=== PATIENT | female | born 1945 | race Caucasian/White ===

== ENCOUNTER → 2017-10-03 09:32 | Outpatient (CLI) | payer MEDICARE, SELFPAY ==
--- NOTE | 2017-10-03 09:37 | XR_ITS ---
XR DEXA axial skeleton HISTORY: ITS.REASON: POST MENOPAUSAL ORDERING PHYSICIAN: Augusto Fonseca MD PATIENT AGE: 71 years COMPARISON: FINDINGS: The BMD measured at the left femoral neck is 0.683 g/cm squared with a T score of -2.6. This is considered Osteoporotic according to the World Health Organization criteria. Fracture risk is High. Treatment is advised. L1 L4 density is a T score of -1.8. IMPRESSION: Osteoporosis with high fracture risk. Treatment recommended. Recommend follow-up exam September 2018
--- NOTE | 2017-10-03 09:37 | MM_ITS ---
MM Dig screening mamm BI w/CAD CAD Screening ORDERING PHYSICIAN : Augusto Fonseca MD PATIENT AGE: 71 years GENDER: Female COMPARISON: Previous mammograms: Only November 2013 available.: TECHNIQUE: Standard CC and MLO images were obtained. R2 CAD reviewed. FINDINGS: Moderately dense breast . Similar architecture to previous comparison study with no new findings of significant concern. No dominant mass nor suspicious calcifications minimal mass effect calcifications bilaterally noted A stable bilateral mammogram IMPRESSION: Stable bilateral mammogram with no significant new findings Moderately dense breast BI-RADS Category: 1 Negative RECOMMENDED FOLLOW-UP: 1YR - 1 YEAR FOLLOW-UP (A letter has been sent to the patient regarding results of the study.)
== END ==
PROVIDERS: Family Provider Family Medicine; PCP Family Medicine; Visit Provider Family Medicine
DX: Z12.31 Encounter for screening mammogram for malignant neoplasm of breast (principal); Z78.0 Asymptomatic menopausal state
CPT/HCPCS: 77067; 77080

== ENCOUNTER → 2018-01-01 13:39 | Outpatient (CLI) | payer MEDICARE, SELFPAY | PROVIDERS: Family Provider Family Medicine; PCP Family Medicine; Visit Provider Internal Medicine | DX: I10 Essential (primary) hypertension (principal); I35.1 Nonrheumatic aortic (valve) insufficiency; R60.9 Edema, unspecified | CPT/HCPCS: 93306 ==

== ENCOUNTER → 2018-03-25 11:36 | Outpatient (CLI) | payer MEDICARE, SELFPAY ==
--- NOTE | 2018-03-25 11:45 | XR_ITS ---
EXAM: XR thoracic spine 3V HISTORY: Pain ITS.REASON: FLANK PAIN Comparison: None FINDINGS: There is mild lower thoracic curvature convex left along with thoracic kyphosis. There is minimal wedging of T9 T8 T7 and T6 which may be chronic. Degenerative disc disease with minimal endplate osteophytes are present in the mid thoracic spine. IMPRESSION: No acute finding. Thoracic kyphosis with degenerative changes
== END ==
PROVIDERS: PCP Family Medicine; Visit Provider Family Medicine
DX: R10.9 Unspecified abdominal pain (principal); M54.6 Pain in thoracic spine
CPT/HCPCS: 72072

== ENCOUNTER 2018-09-20 07:16 | Day surgery (SDC) | payer MEDICARE, SELFPAY ==
[2018-09-17 13:56] VITALS: BMI 23.1
[2018-09-20] VITALS (7 sets, daily range): BP systolic 70–138; BP diastolic 33–67; PULSE 51–67; RESP 16–18; TEMP 36.8–37; O2SAT 96–97
--- NOTE | 2018-09-20 08:35 | HMH.PROC ---
[facility] Procedure Note Procedure Note:: Colonoscopy Procedure Report: Colonoscopy with cold snare polypectomy Endoscopist: Reece Hunter II, MD Referring physician: Tono Fonseca MD Date of Procedure: September 20, 2018 Equipment: Olympus 180 variable stiffness pediatric colonoscope Sedation: MAC sedation Indication: Mrs. Molina is a 72-year-old female who is here for follow-up screening/surveillance colonoscopy. Her mother had colon cancer at the age of 84. The patient's last colonoscopy with mt was 15 years ago. She reports no abdominal pain, weight loss, change in her bowel habits or rectal bleeding. Procedure: Prior to the procedure, a history and physical exam was performed, and patient's medications and allergies were reviewed. The risks, benefits and alternatives of the sedation and procedure were discussed with the patient. All questions were answered and informed consent was obtained. The patient was brought to the procedure room. Patient identification and proposed procedure were verified by the physician and the nurse. The patient was placed in a left lateral decubitus position and the scope was passed under direct vision. Throughout the procedure, the patient's blood pressure, pulse, and oxygen saturations were monitored continuously. The colonoscopy was accomplished without difficulty. The patient tolerated the procedure well. Findings: On digital rectal examination there was normal rectal tone. There were no external hemorrhoids. The colonoscope was introduced through the anal canal to the rectum and advanced to the cecum. The ileocecal valve and appendiceal orifice were identified. The scope was advanced a short distance into the ileum which appeared grossly normal. The scope was then withdrawn into the colon. The cecum, ascending and transverse colon and mucosa were grossly normal. There was a diminutive 3 mm polyp in the descending colon removed via cold snare polypectomy there were very mildly scattered diverticuli throughout the descending and sigmoid colon (LEFT colon). The rectum itself was normal. Upon retroflexion within the rectum there were grade 1 internal hemorrhoids. The preparation was excellent throughout with [place] Preparation Score of 9. The cecal time was 12 minutes. Impression: 1. Diminutive descending polyp 2. Mild left-sided diverticulosis 3. Grade 1 internal hemorrhoids Plan: I will follow-up the polyp histology and recommend repeat screening/surveillance colonoscopy again in 5 years based upon her family history. I would encourage bulk fiber supplementation on a long-term daily maintenance basis.
--- NOTE | 2018-09-20 08:52 | P.PCN_ITS ---
[facility] Procedure Note Procedure Note:: Colonoscopy Procedure Report: Colonoscopy with cold snare polypectomy Endoscopist: Reece Hunter II, MD Referring physician: Tono Fonseca MD Date of Procedure: September 20, 2018 Equipment: Olympus 180 variable stiffness pediatric colonoscope Sedation: MAC sedation Indication: Mrs. Molina is a 72-year-old female who is here for follow-up screening/surveillance colonoscopy. Her mother had colon cancer at the age of 84. The patient's last colonoscopy with ky was 15 years ago. She reports no abdominal pain, weight loss, change in her bowel habits or rectal bleeding. Procedure: Prior to the procedure, a history and physical exam was performed, and patient's medications and allergies were reviewed. The risks, benefits and alternatives of the sedation and procedure were discussed with the patient. All questions were answered and informed consent was obtained. The patient was brought to the procedure room. Patient identification and proposed procedure were verified by the physician and the nurse. The patient was placed in a left lateral decubitus position and the scope was passed under direct vision. Throughout the procedure, the patient's blood pressure, pulse, and oxygen saturations were monitored continuously. The colonoscopy was accomplished without difficulty. The patient tolerated the procedure well. Findings: On digital rectal examination there was normal rectal tone. There were no external hemorrhoids. The colonoscope was introduced through the anal canal to the rectum and advanced to the cecum. The ileocecal valve and appendiceal orifice were identified. The scope was advanced a short distance into the ileum which appeared grossly normal. The scope was then withdrawn into the colon. The cecum, ascending and transverse colon and mucosa were grossly normal. There was a diminutive 3 mm polyp in the descending colon removed via cold snare polypectomy there were very mildly scattered diverticuli throughout the descending and sigmoid colon (LEFT colon). The rectum itself was normal. Upon retroflexion within the rectum there were grade 1 internal hemorrhoids. The preparation was excellent throughout with [place] Preparation Score of 9. The cecal time was 12 minutes. Impression: 1. Diminutive descending polyp 2. Mild left-sided diverticulosis 3. Grade 1 internal hemorrhoids Plan: I will follow-up the polyp histology and recommend repeat screening/surveillance colonoscopy again in 5 years based upon her family history. I would encourage bulk fiber supplementation on a long-term daily maintenance basis.
== END 2018-09-20 09:46 | disposition home or self-care (01) ==
LOC: OUTP 07:17
PROVIDERS: PCP Family Medicine; Visit Provider Internal Medicine Gastroenterology
PROC: 0DJD8ZZ Inspection of Lower Intestinal Tract, Via Natural or Artificial Opening Endoscopic (ICD-10-PCS; CPT 45378; principal; 2018-09-20 08:30)
DX: Z12.11 Encounter for screening for malignant neoplasm of colon (principal); K63.5 Polyp of colon; K57.30 Diverticulosis of large intestine without perforation or abscess without bleeding; K64.0 First degree hemorrhoids
CPT/HCPCS: 45385; 88305

== ENCOUNTER → 2020-01-28 08:22 | Outpatient (CLI) | payer MEDICARE, SELFPAY ==
--- NOTE | 2020-01-28 08:32 | MM_ITS ---
PROCEDURE: MM DIG SCREENING MAMM BI W/CAD Referring Doctor: Augusto Fonseca Patient Age:74Y CLINICAL INDICATION: Routine screening mammogram 74-year-old. No female hormones. No new complaints. Family history maternal aunt with breast cancer COMPARISON: MG DMSB DIG MAMM-SCREEN RAMY from 12/22/2013 MG SCBI MM Dig screening mamm BI w/CAD from 10/03/2017 TECHNIQUE: Standard CC and MLO images were obtained. R2 CAD reviewed. Bilateral digital breast tomosynthesis included. Additional axillary CC view right and left breast left knee Additional nipple profile MLO view left breast FINDINGS: Moderate density breast for age. Mild asymmetry but with no new areas of concern. No dominant nor suspicious mass,. No suspicious calcifications-Only minimal vascular calcifications and benign calcifications bilateral. A CAD computer review highlights no new areas of significant concern.. Left breast: No new areas of concern Mild asymmetric area towards inferior breast unchanged since 2013 Right breast:. No new areas of concern Minor area asymmetry medial breast on CC view is unchanged since prior studies dating back to 2013 IMPRESSION: . . Stable bilateral mammogram with no new areas of concern Moderate breast density but stable mild asymmetry Bilateral follow-up 1 year recommended BI-RAD Category: 1 Negative FOLLOW-UP: 1YR 1 Year Follow-up (A letter has been sent to the patient regarding results of the study.) Dictated by: Rod Saul MD 02/01/2020 10:54 Rod Saul MD in [place] 02/01/2020 10:54
--- NOTE | 2020-01-28 08:33 | XR_ITS ---
PROCEDURE: XR DEXA AXIAL SKELETON CLINICAL HISTORY: OSTEOPOROSIS COMPARISON: CR DEXAAX XR DEXA axial skeleton from 10/03/2017 FINDINGS: The right hip BMD is 0.578 with a T-score of -2.4. The left hip BMD is 0.628 with a T-score of -2.6. The lumbar spine BMD is 0.804 with a T-score of -2.2. Previously the lowest density was in the left femoral neck with T-score -2.6 IMPRESSION: This patient is considered osteoporotic according to the World Health Organization criteria. Fracture risk is high. Treatment is advised. Based on these results a follow-up exam is recommended in 1 year. Dictated by: Leeroy Roberson MD 01/29/2020 07:28 Leeroy Roberson MD in [place] 01/29/2020 07:28
== END ==
PROVIDERS: PCP Family Medicine; Visit Provider Family Medicine
DX: Z12.31 Encounter for screening mammogram for malignant neoplasm of breast (principal); M81.0 Age-related osteoporosis without current pathological fracture
CPT/HCPCS: 77063; 77067; 77080

== ENCOUNTER → 2021-04-04 10:53 | Outpatient (CLI) | payer MEDICARE, SELFPAY ==
--- NOTE | 2021-04-04 10:56 | MM_ITS ---
PROCEDURE INFORMATION: Exam: MG Bilateral Screening 3D Mammography Exam date and time: 04/04/2021 10:56 AM Age: 75 years old Clinical indication: Encounter for screening mammogram for malignant neoplasm of breast . Family history of breast carcinoma. TECHNIQUE: Imaging protocol: Bilateral screening tomosynthesis and 2D mammography including computer-aided detection (CAD) when performed. COMPARISON: 1. MG MM DIG SCREENING MAMM BI W/CAD 01/28/2020 8:32 AM 2. MG SCBI MM Dig screening mamm BI w/CAD 10/03/2017 10:09 AM 3. MG DMSB DIG MAMM-SCREEN RAMY 12/22/2013 8:31 AM FINDINGS: MAMMOGRAPHY: Breast composition: The breasts are heterogeneously dense, which may obscure small masses. Mass: No suspicious masses. Architectural distortion: No suspicious distortion. Calcifications: No suspicious calcifications. Asymmetric density: None. Skin thickening: None. Axillary adenopathy: None. IMPRESSION: No mammographic evidence of malignancy. Annual screening is recommended unless otherwise clinically indicated. ASSESSMENT: BI-RADS Category 1: Negative
== END ==
PROVIDERS: PCP Family Medicine; Visit Provider Family Medicine
DX: Z12.31 Encounter for screening mammogram for malignant neoplasm of breast (principal)
CPT/HCPCS: 77063; 77067

== ENCOUNTER → 2021-05-25 15:51 | Outpatient (CLI) | payer MEDICARE, SELFPAY ==
--- NOTE | 2021-05-25 16:03 | XR_ITS ---
PROCEDURE INFORMATION: Exam: XR Chest Exam date and time: 05/25/2021 4:03 PM Age: 75 years old Clinical indication: Pain; Left-sided; Additional info: Radicular pain of lt upper extremity TECHNIQUE: Imaging protocol: XR of the chest. Views: 2 views. COMPARISON: CR [id number] XR thoracic spine 3V 03/25/2018 12:02 PM FINDINGS: Lungs: Unremarkable. No consolidation. Pleural spaces: Unremarkable. No pleural effusion. No pneumothorax. Heart/Mediastinum: Heart size is normal. There is tortuosity of the descending thoracic aorta. Bones/joints: Degenerative changes noted within the thoracic spine. There is accentuated thoracic kyphosis noted. IMPRESSION: No evidence of acute intrathoracic disease.
--- NOTE | 2021-05-25 16:04 | XR_ITS ---
PROCEDURE INFORMATION: Exam: XR Cervical Spine Exam date and time: 05/25/2021 4:04 PM Age: 75 years old Clinical indication: Pain; Cervicalgia; Additional info: Radicular pain of lt upper extremity TECHNIQUE: Imaging protocol: XR of the cervical spine. Views: 4 or 5 views. COMPARISON: CR [id number] XR thoracic spine 3V 03/25/2018 12:02 PM FINDINGS: Bones/joints: No evidence of acute fracture. There are degenerative changes involving the facets of C2-C3 through C6-C7 bilaterally. Mild narrowing of the right C5-C6 exit foramen. Alignment is satisfactory. Hypertrophic changes between the anterior arch of C1 and dens of C2. The spinolaminar line is intact. Soft tissues: Unremarkable. IMPRESSION: Osteoarthritis of the cervical spine. No evidence of acute fracture or malalignment.
--- NOTE | 2021-05-25 16:31 | ECG_ITS ---
APPROVED REPORT Exam: Resting ECG HR:55 bpm ECG Measurements Heart Rate 55 AXES UT 113 P 16 QRSd 93 QRS 21 QT 443 T 56 QTc 432 Conclusion SINUS BRADYCARDIA WITH SHORT UT INTERVAL Late r wave progression ABNORMAL ECG UNCONFIRMED REPORT Electronically signed by : Konrad Tovar MD 05/30/2021 17:34:10
== END ==
PROVIDERS: PCP Family Medicine; Visit Provider Family Medicine
DX: M79.2 Neuralgia and neuritis, unspecified (principal)
CPT/HCPCS: 71046; 72050; 93005

== ENCOUNTER → 2021-10-14 08:25 | Outpatient (CLI) | payer MEDICARE, SELFPAY ==
--- NOTE | 2021-10-14 08:29 | XR_ITS ---
FINAL REPORT TECHNIQUE: Bone densitometry calculations of the lumbar spine and left hip were obtained. CLINICAL HISTORY: . post menopausal COMPARISON: January 28, 2020 FINDINGS: DEXA BONE DENSITY AXIAL SKELETON Using L1-4, the bone mineral density of the spine is 0.838 g/cm2, corresponding to T-score of -1.9. Was 0.804 g/cm2 corresponding to a T-score of -2.2 Using the left hip, the bone mineral density of the femoral neck is 0.527 g/cm2, corresponding to a T-score of -2.9. Was 0.527 g/cm2 corresponding with a T-score of -2.4 NOTE: T-score: Standard deviation compared with peak bone mass of young adult mean. *Following the recommendations of the International Society of Bone Densitometry, classification of hip BMD is based on the lower of two T-scores; total hip or femoral neck. IMPRESSION: Osteoporosis: Lowest T-score is at or below -2.5. This patient's T-score meets the World Health Organization criteria for osteoporosis. Reviewed, Interpreted and Dictated by Mehul Barros III, MD Transcribed by Era Mahajan Authenticated and [facility]
== END ==
PROVIDERS: PCP Family Medicine; Visit Provider Family Medicine
DX: M81.0 Age-related osteoporosis without current pathological fracture (principal)
CPT/HCPCS: 77080

== ENCOUNTER 2022-10-03 11:46 | Emergency (ER) | payer MEDICARE, SELFPAY ==
[2022-10-03 11:46] VITALS: BP 144/56; PULSE 61; RESP 16; TEMP 37; O2SAT 99; BMI 22.3
--- NOTE | 2022-10-03 12:12 | HMH.EDGENADL ---
Discharge Plan Disposition Patient Disposition: Home, Self-Care Prescriptions Prescriptions: New epinephrine [EpiPen 2-Mehdi] 0.3 mg/0.3 mL auto-injector 0.3 mg IM Q10M PRN (Reason: anaphylaxis) Qty: 2 0RF Rx Instructions: for 2 doses No Action aspirin [Aspir-81] 81 mg tablet,delayed release (DR/EC) 81 mg PO DAILY losartan-hydrochlorothiazide 100-12.5 mg tablet 1 tab PO DAILY levothyroxine 50 mcg capsule 50 mcg PO DAILY pravastatin 80 mg tablet 80 mg PO DAILY C,E,zinc,copper [id number] [50 [facility]] 250-5-1 mg capsule 1 cap PO DAILY multivitamin tablet 1 tab PO DAILY coenzyme Q10 [Co Q-10] 10 mg capsule 10 mg PO DAILY potassium chloride 10 MEQ capsule, extended release 10 meq PO DAILY alendronate 70 MG tablet 70 mg PO DAILY calcium-vitamin D3-vitamin K 1 EACH tablet,chewable 1 each PO DAILY Referrals Follow up/Referrals: Augusto Fonseca MD [Primary Care Provider] - See instructions Activity Restrictions/Add. Instructions Additional Instructions/Restrictions: It is possible that you had an anaphylactic reaction but your symptoms have since resolved and no evidence of anaphylaxis at the moment. Please get your EpiPen's filled and use them if your symptoms return remember the indication would be to organ system involvement that typically includes your skin plus no other organ system such as your breathing your mucosa and your lips or your tongue and of your gastrointestinal system such as nausea and vomiting. You may continue to take Benadryl as needed. Right now the only clinical evidence is a local reaction from the hymenoptera sting. Clinical Impressions Clinical Impression: Local reaction to hymenoptera sting Discharge ED Provider: Reg Gale General Adult HPI General Stated complaint: Bee sting RT ear Time Seen by Provider: 10/03/22 12:12 History of Present Illness HPI narrative: Patient is a 76-year-old female presenting with right ear pain and swelling following a bee sting. This happened about 2 hours prior to arrival and it was associated with a diffuse body rash heart racing some nausea and feeling like she was in a pass out. Symptoms have since almost completely resolved within the localized swelling in her ear after a dose of Benadryl. She currently denies any mucosal swelling shortness of breath nausea or feeling she is going to pass out. She has no other significant medical problems Related Data Home Medications Medication Instructions Recorded Confirmed aspirin 81 mg tablet,delayed 81 mg PO DAILY prevent 12/25/17 09/17/18 release (Aspir-) coenzyme Q10 10 mg capsule (Co 10 mg PO DAILY Supplement 12/25/17 09/17/18 Q-10) levothyroxine 50 mcg capsule 50 mcg PO DAILY thyroid 12/25/17 09/17/18 losartan 100 1 tab PO DAILY bp 12/25/17 09/20/18 mg-hydrochlorothiazide 12.5 mg tablet multivitamin 1 tab PO DAILY Supplement 12/25/17 09/17/18 pravastatin 80 mg tablet 80 mg PO DAILY Cholesterol 12/25/17 09/17/18 vit C,E,zinc,copper-[id number] 250 1 cap PO DAILY Supplement 12/25/17 09/17/18 mg-lutein 5 mg-zeaxanthin 1 mg capsule (50 Plus [facility]) alendronate 70 mg tablet 70 mg PO DAILY bones 09/17/18 09/17/18 calcium-vitamin D3-vitamin K 500 1 each PO DAILY Supplement 09/17/18 09/17/18 mg-1,000 unit-40 mcg chewable tablet potassium chloride 10 mEq 10 meq PO DAILY Supplement 09/17/18 09/17/18 capsule,extended release Previous Rx's Medication Instructions Recorded epinephrine 0.3 mg/0.3 mL 0.3 mg (0.3 mL) IM Q10M PRN 10/03/22 injection, auto-injector (EpiPen anaphylaxis #2 ea 2-Mhedi) Allergies Allergy/AdvReac Type Severity Reaction Status Date / Time No Known Allergies Allergy Verified 09/17/18 13:50 [facility] Disclaimer: The information contained in this section may have been updated after the patient was seen, as this information can be updated by ot
[2022-10-03 12:26] VITALS: BP 138/57; PULSE 54; RESP 20; TEMP 36.8; O2SAT 97
== END 2022-10-03 12:27 | disposition home or self-care (01) ==
PROVIDERS: Emergency Provider Student in an Organized Health Care Education/Training Program; PCP Family Medicine
DX: T63.441A Toxic effect of venom of bees, accidental (unintentional), initial encounter (principal); H92.01 Otalgia, right ear; R22.0 Localized swelling, mass and lump, head
CPT/HCPCS: 99283; 99284

== ENCOUNTER → 2022-12-19 10:41 | Outpatient (CLI) | payer MEDICARE, SELFPAY ==
--- NOTE | 2022-12-19 10:51 | CA_ITS ---
APPROVED REPORT EXAM: Comprehensive 2D, Doppler, and color-flow Echocardiogram Nuclear Medicine Tech: Brigid Payne CRT Ht: 5 ft 4 in Wt: 142lbs BSA: 1.69 BP: 124/44 mmHg Indications: BAV, Aortic Valve Disease, Hyperlipidemia, Hypertension/HDD, mod AI 2D Dimensions LVOT 1.84 cm (M/F) 1.5-2.5 LA Volume 37.80 mL LA Volume Index 22.37 mL/m2 (M/F) 16-34 M-Mode Dimensions RVDd 2.31 cm (0.9-2.6) LA Diam 3.80 cm (1.9-4.0) LVDd 3.99 cm (3.5-5.7) Ao Diam 3.19 cm (2.0-3.7) LVDs 2.14 cm (3.5-5.7) IVSd 2.01 cm (0.6-1.1) PWd 0.74 cm (0.6-1.1) EF (Teich) 78.30% FS 46.40% EDV (Teich) 69.60 mL ESV (Teich) 15.10 mL LV Diastology E Decel Time 207.00 (160-240 msec) E/A Ratio 0.9 MED E' 9.20 (< 7 cm/sec) MED A' 8.30 cm/s E'/MED E' Ratio 5.96 (>14) LAT E' 9.10 (<10 cm/sec) LAT A' 11.90 cm/s E/LAT E' Ratio 6.02 (>14) Aortic Valve LVOT Max 113.00 (70-110 cm/s) LVOT VTI 27.92 cm AoV Peak Daniel. 195.00 (50-130 cm/s) AI PHT 503.00 ms AO Peak GR. 15.20 mmHg AO Mean GR. 8.90 (<5 mmHg) AO VTI 44.38 (18-25 cm) JOSIE (VTI) 1.67 (2.5-4.5 cm2) Mitral Valve MV E Max Daniel. 55.00 (40-130 cm/s) MV A Velocity 58.00 (40-130 cm/s) E/A Ratio 0.95 MV Decel. Time 207.00 (160-240 ms) MV PHT 61.00 ms Pulmonary Valve PV Peak Velocity 145.00 (50-150 cm/s) Tricuspid Valve TR P. Velocity 299.00 cm/s RAP Estimate 10.00 mmHg RVSP 45.70 mmHg Left Ventricle The left ventricle is normal size. LVEDd=5.3 cm. LVESd=2.5 cm. The left ventricular systolic function is normal. The left ventricular ejection fraction is within the normal range. There is increased LV wall thickness. There is normal LV segmental wall motion. Diastolic function is normal. LVEF is 55%. Right Ventricle The right ventricle is normal size. The right ventricular systolic function is normal. Atria The left atrium size is normal. The right atrium size is normal. There is no Doppler evidence of interatrial shunt. Aortic Valve The aortic valve appears morphologically abnormal, likely bicuspid aortic valve with raphe between the right and left coronary cusps. The aortic valve is mildly thickened. There is no hemodynamically significant aortic valvular stenosis. There is moderate aortic regurgitation. Mitral Valve The mitral valve is normal in structure. No evidence of mitral valve stenosis. Trace mitral regurgitation. Tricuspid Valve The tricuspid valve leaflets are thin and pliable. Mild tricuspid regurgitation. RVSP is 30-35 mmHg. Pulmonic Valve The pulmonary valve is normal in structure. Mild pulmonic regurgitation. Great Vessels The aortic root is normal in size. The ascending aorta is mildly dilated. The ascending aorta measures 4.0 cm. IVC is normal in size and collapses >50% with inspiration. Pericardium There is no pericardial effusion. Other Information Study Quality: Fair Conclusion Normal biventricular systolic function. Morphologically abnormal AV, likely bicuspid (raphe between left and right coronary cusps). Moderate AI, with normal LV dimensions (LVEDd=5.3 cm. LVESd=2.5 cm). Compared to prior study from 2018, there are overall no significant changes with regards the severity of AI. The LV dimensions are slightly larger now, but overall still within normal limits in both systole and diastole. Electronically signed by : Narcisa Perez, 12/19/2022 18:02:10
== END ==
PROVIDERS: PCP Family Medicine; Visit Provider Nurse Practitioner Family
DX: I10 Essential (primary) hypertension (principal); I35.1 Nonrheumatic aortic (valve) insufficiency; I35.9 Nonrheumatic aortic valve disorder, unspecified
CPT/HCPCS: 93306

== ENCOUNTER 2023-06-14 09:43 | Outpatient (CLI) | payer MEDICARE, SELFPAY ==
--- NOTE | 2023-06-14 09:47 | MM_ITS ---
PROCEDURE INFORMATION: Exam: MG Bilateral Screening 3D Mammography Exam date and time: 06/14/2023 9:38 AM Age: 77 years old Clinical indication: Screening examination TECHNIQUE: Imaging protocol: Bilateral Screening tomosynthesis and 2D mammography including computer-aided detection (CAD) when performed. COMPARISON: 1. MG MM DIG SCREENING MAMM BI W/CAD 04/04/2021 10:52 AM 2. MG MM DIG SCREENING MAMM BI W/CAD 01/28/2020 8:32 AM FINDINGS: MAMMOGRAPHY: Breast composition: The breasts are heterogeneously dense, which may obscure small masses. Mass: None. Architectural distortion: None. Calcifications: No suspicious calcifications. Asymmetric density: None. Skin thickening: None. Axillary adenopathy: None. IMPRESSION: No mammographic evidence of malignancy. Annual screening is recommended unless otherwise clinically indicated. ASSESSMENT: BI-RADS Category 1: Negative
== END 2023-06-14 23:59 ==
LOC: RAD 09:43
PROVIDERS: PCP Family Medicine; Visit Provider Family Medicine
DX: Z12.31 Encounter for screening mammogram for malignant neoplasm of breast (principal)
CPT/HCPCS: 77063; 77067

== ENCOUNTER 2023-07-03 08:58 | Outpatient (CLI) | payer MEDICARE, SELFPAY ==
--- NOTE | 2023-07-03 09:06 | XR_ITS ---
FINAL REPORT TECHNIQUE: Bone densitometry calculations of the lumbar spine and left hip were obtained. CLINICAL HISTORY: OSTEOPOROSIS COMPARISON: 10/14/2021 FINDINGS: Using L1-4, the bone mineral density of the spine is 0.859 g/cm2, corresponding to T-score of -1.7. Using the left hip, the bone mineral density of the femoral neck is 0.615 g/cm2, corresponding to a T-score of -2.1. Using the right hip, the bone mineral density of the femoral neck is 0.576 g/cm?, corresponding to a T-score of -2.5. NOTE: T-score: Standard deviation compared with peak bone mass of young adult mean. *Following the recommendations of the International Society of Bone Densitometry, classification of hip BMD is based on the lower of two T-scores; total hip or femoral neck. IMPRESSION: Findings consistent with osteoporosis right femoral neck. Findings consistent with low bone density left femoral neck and lumbar spine. Reviewed, Interpreted and Dictated by Mehul Barros III, MD Transcribed by Marnie Schroeder Authenticated and . [facility]
== END 2023-07-03 23:59 ==
LOC: RAD 08:59
PROVIDERS: PCP Family Medicine; Visit Provider Family Medicine
DX: M81.0 Age-related osteoporosis without current pathological fracture (principal)
CPT/HCPCS: 77080

== ENCOUNTER 2024-02-19 08:53 | Outpatient (CLI) | payer MEDICARE, SELFPAY ==
--- NOTE | 2024-02-19 08:57 | MM_ITS ---
PROCEDURE INFORMATION: Exam: MG Bilateral Screening 3D Mammography Exam date and time: 02/19/2024 8:44 AM Age: 78 years old Clinical indication: Screening mammogram TECHNIQUE: Imaging protocol: Bilateral Screening tomosynthesis and 2D mammography including computer-aided detection (CAD) when performed. COMPARISON: 1. MG MM DIG SCREENING MAMM BI W/CAD 06/14/2023 9:38 AM 2. MG MM DIG SCREENING MAMM BI W/CAD 04/04/2021 10:52 AM 3. MG MM DIG SCREENING MAMM BI W/CAD 01/28/2020 8:32 AM 4. MG SCBI MM Dig screening mamm BI w/CAD 10/03/2017 10:09 AM FINDINGS: MAMMOGRAPHY: Breast composition: There are scattered areas of fibroglandular density. Mass: None. Architectural distortion: No new or suspicious architectural distortion. Calcifications: No new or suspicious calcifications are present Asymmetric density: No new or suspicious asymmetric density is present Skin thickening: None. Axillary adenopathy: None. IMPRESSION: No mammographic evidence of malignancy. Recommend annual screening mammography unless otherwise clinically indicated. ASSESSMENT: BI-RADS category 1: Negative.
== END 2024-02-19 23:59 | disposition home or self-care (01) ==
LOC: RAD 08:53
PROVIDERS: PCP Family Medicine; Visit Provider Family Medicine
DX: Z12.31 Encounter for screening mammogram for malignant neoplasm of breast (principal)
CPT/HCPCS: 77063; 77067

== ENCOUNTER 2025-01-02 13:57 | Outpatient (CLI) | payer MEDICARE, SELFPAY ==
--- OUTSIDE RECORDS SUMMARY | 2023-08-13 06:00 | XMS_ITS ---
Author Organization [facility] Address [address] [facility] [address] [facility] [address] [place] [id number] Care Team Providers Care Ceramic Engineer Name Role Phone Reg Fonseca Primary Care Provider Allergies No Known Allergies Results Component Value Reference Range Notes P-Comprehensive Metabolic Pa venessa (CMP) Reviewed date:08/15/2023 09:27:18 AM Interpretation:co2 21, gfr 58 Performing Lab: Notes/Report: Test performed by [employer], [employer] [address] [place] [address] , [address], [place] [address] Kranthi Simeon MD, Pot Runner CLIA: [id number] Sodium 140 135-145 mEq/L Potassium 4.3 3.5-5.3 mEq/L Chloride 105 97-108 mEq/L CO2 21 22-32 mEq/L Glucose 95 65-99 mg/dL BUN 23 8-23 mg/dL Creatinine 0.99 0.50-1.00 mg/dL Calcium 9.8 8.6-10.4 mg/dL eGFR by Creatinine 58 >59 mL/min/1.73m2 Protein 6.3 6.0-8.3 g/dL Albumin 4.4 3.5-5.3 g/dL Alkaline Phosphatase 55 35-121 IU/L ALT (SGPT) 14 <5-47 IU/L AST (SGOT) 18 <5-40 IU/L Bilirubin, Total 0.5 <0.2-1.2 mg/dL A/G Ratio 2.3 1.1-2.5 mg/dL P-TSH Reviewed date:08/15/2023 09:27:18 AM Interpretation:Normal Performing Lab: Notes/Report: Test performed by [employer], [employer] [address] [place] [address] , [address], [place] [address] Kranthi Simeon MD, Pot Runner CLIA: [id number] TSH 2.28 0.43-5.25 mU/L REASON FOR VISIT 6 mo ck up, Needs labs Medications Medication SIG (Take, Route, Frequency, Duration) Notes Start Date End Date Status Furosemide 20 MG 1 tab(s) orally as needed prn 10/06/2015 Active Aspirin Adult Low Dose 81 MG orally only one aa day TAKES 2 DAILY Active Levothyroxine Sodium 75 MCG 1 tab(s) orally once a day; Duration: 90 days Active Alendronate Sodium 70 MG 1 tab(s) orally once a week; Duration: 84 Active Potassium Chloride ER 10 MEQ TAKE 1 TABLET EVERY DAY; Duration: 90 Active Losartan Potassium-HCTZ 100-12.5 MG TAKE 1 TABLET EVERY DAY; Duration: 90 Active Fiber Choice 3 CAPS P.O. Q DAY Active Multivitamin - 1 tab(s) orally once a day; Duration: 30 day(s) Active ICaps Active Calcium 600 + Minerals 600-200 MG-UNIT 1 tab(s) orally once daily Active Pravastatin Sodium 80 MG TAKE 1 TABLET A T BEDTIME; Duration: 90 Active Co Q10 100MG 1 TAB ORAL QD 03/28/2012 Ac tive Vital Signs Blood pressure systolic 140 mm Hg 08/13/19 24 Blood pressure diastolic 60 mm Hg 024 Heart Rate 61 /min 08/13/2023 Height 63 in 08/13/2023 Weight 129.6 lbs 08/13/2023 BMI 22.96 kg/m2 08/13/2023 Encounters Encounter Location Date Provider Diagnosis [facility] [address] [place], [place] [id number] 08/13/2023 Reg Fonseca Aortic valve insufficiency, unspecified etiology I35.1 ; Essential hypertension I10 ; Actinic keratosis L57.0 and Acquired hypothyroidism E03.9 Assessments Encounter Date Diagnosis (ICD Code) Assessment Notes Treatment Notes Treatment Clinical Notes Section Notes 08/13/2023 Aortic valve insufficiency, unspecified etiology (ICD-10 - I35.1) 08/13/2023 Essential hypertension (ICD-10 - I10) 08/13/2023 Actinic keratosis (ICD-10 - L57.0) 08/13/2023 Acquired hypothyroidism (ICD-10 - E03.9) Plan Of Treatment Next Appt Details Follow Up: 6 Months, Reason: Provider Name:Reg Elias er, 01/05/2025 11:15:00 AM, [address], [address], [place], [place], [id number], Procedure Notes * Category Sub-Category Detail Notes Cryotherapy Actinic Keratosis Method: Wa llach LL-100 used to freeze and refreeze the lesions, of the right forearm and he left hand, dorsum, The patient tolerated the procedure well. Progress Notes * Beata MOLINAOB:[birth year] (79 yo F)Acc No.[id number]:08/13/2023 Progress Notes Patient: Lucia ALFARO Provider: Reg Fonseca M.D. :1945 A ge:77 Y S ex:Female Date:08/13/2023 Address:[address] [place] [address], [place], [id number] Subjective: * Chief Complaints: * 1 . 6 mo ck up. 2. Needs labs. * HPI: C ardiology: The pt is here for a check up on Hypertension and Hyperlipidemia. Pt states she is doing good. Pt states she has a spot on the right forearm she would like checked out. Pt is not fasting. Denies : Chest Pain. D enies : Short of Breath. D enies : Dizziness. D enies : Palpitations. * ROS: D ERMATOLOGY: no R davi. n o H leslie. G ASTROENTEROLOGY: no N ausea. n o V omiting. n o D iarrhea.? U ROLOGY: no D ifficulty urinating. n o B lood in urine. * Medical History: H yperlipidemia, Bicuspid aortic valve, aortic insufficiency, Basal cell CA left shoulder 07/2011, Flu shot 2022, Shingrix x2 . * Surgical History: t ubal 1994, cataract (left) 06/2010. * Family History: F ather: 84 yrs. M other: , puem[place]. 1 brother(s) , 3 sister(s) . 1 son(s) , 1 daughter(s) . . * Social History: C URRENT TOBACCO USE S moking Status: Patient does NOT smoke. C affeine: yes, frequency:coffee, pop and tea. Home smoke detector use: yes. Marital Status: . Past smoking status: no, Smoking status: Does not smoke. Alcohol: Yes, Type: , Frequency: ,Years: , Determination:, rare. Sexually active: yes. * Medications: T aking Furosemide 20 MG Tablet 1 tab(s) orally as needed , Notes to Pharmacist: prn, Taking Aspirin Adult Low Dose 81 MG Tablet Delayed Release orally only one aa day , Notes to Pharmacist: TAKES 2 DAILY, Taking Co Q10 100MG 1 TAB ORAL QD , Taking Fiber Choice 3 CAPS P.O. Q DAY , Taking Multivitamin - Tablet 1 tab(s) orally once a day , Taking ICaps , Taking Calcium 600 + Minerals 600-200 MG-UNIT Tablet 1 tab(s) orally once daily , Taking Pravastatin Sodium 80 MG Tablet TAKE 1 TABLET AT BEDTIME , Taking Potassium Chloride ER 10 MEQ Tablet Extended Release TAKE 1 TABLET EVERY DAY , Taking Losartan Potassium-HCTZ 100-12.5 MG Tablet TAKE 1 TABLET EVERY DAY , Taking Levothyroxine Sodium 75 MCG Tablet 1 tab(s) orally once a day , Taking Alendronate Sodium 70 MG Tablet 1 tab(s) orally once a week , Discontinued Zithromax Tri-Mehdi 500 MG Tablet 1 tab(s) orally once a day , Discontinued Medrol 4 MG Tablet Therapy Pack as directed orally , Discontinued Promethazine-DM 6.25-15 MG/5ML Syrup 5 ml orally every 6 hours as needed , Discontinued Ondansetron HCl 4 MG Tablet 1 tab(s) orally every 8 hours as needed , Medication List reviewed and reconciled with the patient * Allergies: N .K.D.A. Objective: * Vitals: W t:129.6, Temp:98.2, BP:140/60, HR:61, Nurse:CATRACHO, Ht: 63, BMI:22.96. * Examination: G eneral Examination: General Appearance: N AD. H EENT: u nremarkable.?Oral cavity: n o lesions, mucosa moist and WNL, no erythema. N amber: s upple, no lymphadenopathy. C hest: n ormal shape and expansion. H eart: R SR, aortic murmur, diastolic murmur, no ectopics. L ungs: c lear to auscultation. A bdomen: soft and nontender, no organomegaly or masses. N eurologic Exam: I ntact, gait normal. S kin: 2 actinic lesions, oneof dorsum of the right forearm, one of dorsum left hand, small raised horns, no pigmentation. P eripheral pulses: n ormal. B ack: mild dorsal kyphosis. E xtremities: t race leg edema. Assessment: * Assessment: 1. A ortic valve insufficiency, unspecified etiology - I35.1 (Primary) 2 . E ssential hypertension - I10 3 . A ctinic keratosis - L57.0 4 .?Acquired hypothyroidism - E03.9 Plan: * Treatment: Value Reference Range A /G Ratio 2.3 1.1-2.5 - mg/dL * A lbumin 4.4 3.5-5.3 - g/dL * A lkaline Phosphatase 55 35-121 - IU/L * A LT (SGPT) 14 <5-47 - IU/L * A ST (SGOT) 18 <5-40 - IU/L * B ilirubin, Total 0.5 <0.2-1.2 - mg/dL * B UN 23 8-23 - mg/dL * C alcium 9.8 8.6-10.4 - mg/dL * C hloride 105 97-108 - mEq/L * C O2 21 L 22-32 - mEq/L * C reatinine 0.99 0.50-1.00 - mg/dL * G lucose 95 65-99 - mg/dL * P otassium 4.3 3.5-5.3 - mEq/L * S odium 140 135-145 - mEq/L * P rotein 6.3 6.0-8.3 - g/dL * e GFR by Creatinine 58 L >59 - mL/min/1.73m2 * Rachelle Otto 08/15/2023 9:26 :14 AM >See phone encounter 2.?Acquired hypothyroidism?LAB: P-TSH (Collection Date & Time - 08/13/2023 09:40 AM)?Normal* Value Reference Range T SH 2.28 0.43-5.25 - mU/L * Rachelle Otto 08/15/2023 9:26 :14 AM >See phone encounter * Procedures: C ryotherapy Actinic Keratosis: Method: W allach LL-100 used to freeze and refreeze the lesions, of the right forearm and he left hand, dorsum, The patient tolerated the procedure well.. * Procedure Codes: 1 7000 DESTRUCTION BENIGN LESION, CRYOSURGERY,ELECTROSURGERY FIRST LESION, 14157 DESTRUCTION BENIGN LESION,CRYO, ELECTRO, 2-14 LESIONS * Follow Up: 6 Months * Images: Billing Information: * Visit Code: 70050 Office Visit, Est Pt., Level 4. * Procedure Codes: 45710 DESTRUCTION BENIGN LESION, CRYOSURGERY,ELECTROSURGERY FIRST LESION. 51677 DESTRUCTION BENIGN LESION,CRYO, ELECTRO, 2-14 LESIONS. * Electronic signature of Reg Fonseca MD on 01/02/2025 at 02:05 PM EDT Sign off status: Pending * Provider: Reg Fonseca M.D. Date: 0 08/13/2023 Generated for Wily corral/Chasity/Kellyitting on: 0 01/02/2025 02:05 PM EDT History and Physical Notes * HPI (History of Present Illness) Category Sub-Category Detail Notes Category Not es Cardiology Short of Breath Chest Pain Palpitations Dizziness Examination Category Sub-Category Detail Notes Category Not es General Examination HEENT: unremarkable Heart: RSR, aortic murmur, diastolic murmur, no ectopics Lungs: clear to auscultatio n Abdomen: soft and nontender, no organomegaly or masses Extremities: trace leg edema General Appearance: NAD Skin: 2 actinic lesions, o neof dorsum of the right forearm, one of dorsum left hand, small raised horns, no pigmentation Neurologic Exam: Intact, gait normal Neck: supple, no lymphaden opathy Oral cavity: no lesions, mucosa m oist and WNL, no erythema Peripheral pulses: normal Back: mild dorsal kyphosis Chest: normal shape and exp ansion
--- OUTSIDE RECORDS SUMMARY | 2024-02-11 05:30 | XMS_ITS ---
Author Organization [facility] Address [address] [facility] [address] [facility] [address] [place] [id number] Care Team Providers Care Refrigerator Repair Technician Name Role Phone Reg Fonseca Primary Care Provider Allergies No Known Allergies Results Component Value Reference Range Notes P-Comprehensive Metabolic Pa venessa (CMP) Reviewed date:02/12/2024 04:15:14 PM Interpretation:Cr 1.08, gfr 52 Performing Lab: Notes/Report: Test performed by [employer] [address] [place] [address] , [address], [place] [address] Kranthi Simeon MD, Product Support Technician CLIA: [id number] Sodium 142 135-145 mmol/L Potassium 4.4 3.5-5.3 [...] Interpretation:Normal Performing Lab: Notes/Report: Test performed by [employer], [employer] [facility] , [address], [place] [address] Kranthi Simeon MD, Product Support Technician CLIA: [id number] TSH 3.32 0.43-5.25 mU/L Reason For Referral [...] Encounter Location Date Provider Diagnosis [facility] [address] [facility] [address] [facility] [address] [place] [id number] 02/11/2024 Reg Fonseca Encounter for immunization Z23 [...] Name:Reg Elias er, 01/05/2025 11:15:00 AM, [address] [facility] [address] [facility], [address], [place], [id number], Progress Notes * Beata MOLINAOB:[birth year] (79 yo F)Acc No.[id number]:02/11/2024 Progress Notes Patient: Choco ALFAROon Provider: Reg Fonseca M.D. :1945 A ge:78 Y S ex:Female Date:02/11/2024 Address:[address] [place] [address] [address], [place], [phone] Subjective: * Chief Complaints: * 1 . [...] * Images: Billing Information: * Visit Code: 63454 Office Visit, Est Pt., Level 4. * Procedure Codes: * Electronic signature of Reg Fonseca MD on 01/02/2025 at 02:05 PM EDT Sign off status: Pending * Provider: Reg Fonseca M.D. Date: 1 Generated for Benii shayna/Chasity/eTransmitting on: 0 01/02/2025 02:05 PM EDT History [...]
--- OUTSIDE RECORDS SUMMARY | 2024-08-11 05:30 | XMS_ITS ---
Author Organization [facility] Address 1210 [facility] 36 [facility] [address] [place] [id number] Care Team Providers Care Market Research Senior Project Manager Name Role Phone Reg Fonseca Primary Care Provider Allergies No Known Allergies Results Component Value Reference Range Notes P-Comprehensive Metabolic Pa venessa (CMP) Reviewed date:08/15/2024 10:18:17 AM Interpretation:creat 1.02, eGFR 56 Performing Lab: Notes/Report: Test performed by [facility] [address] [place] [address] , [address], [place] [address] Kranthi Simeon MD, Machine Woodworking Sander CLIA: [id number] Sodium 141 135-145 mmol/L Potassium 4.1 3.5-5.3 [...] Interpretation:Normal Performing Lab: Notes/Report: Test performed by [employer], [employer] [facility] [place] , [address], [place] [address] Kranthi Simeon MD, Machine Woodworking Sander CLIA: [id number] TSH 4.44 0.43-5.25 mU/L REASON FOR VISIT [...] Status W/U Status Risk Notes Problem Osteoporosis (93077251) Osteoporosis, unspecified (M81.0) Active confirmed Vital Signs Blood pressure systolic 174 mm Hg 08/12/19 25 Blood pressure diastolic 62 mm Hg 025 Heart Rate 58 /min 08/11/2024 Height 63 in 08/11/2024 Weight 131.2 lbs 08/11/2024 BMI 23.24 kg/m2 08/11/2024 Encounters Encounter Location Date Provider Diagnosis [facility] [address] [place], [place] [id number] 08/11/2024 Reg Fonseca Essential hypertensi on I10 [...] Up: 6 Weeks, Reason: Provider Name:Reg Elias er, 01/05/2025 11:15:00 AM, [address] [facility] [address] [facility], [address] , [place], [place], [phone], Progress Notes * Beata MOLINAOB:[birth year] (79 yo F)Acc No.[id number]:08/11/2024 Progress Notes Patient: Lucia ALFARO Provider: Reg Fonseca M.D. :1945 A ge:78 Y S ex:Female Date:08/11/2024 Address:[address] [place] [address], [place] [phone] Subjective: * Chief Complaints: * 1 . [...] . O steoporosis - M81.0 6. B VT 23.0-23.9, adult - Z68.23 7 . O [...] * Images: Billing Information: * Visit Code: 18017 Office Visit, Est Pt., Level 4. * Procedure Codes: G2211 Complex e/m visit add on. 3077F SYST BP = 140 MM HG6 IT. 3078F DIAST BP < 80 MM HG. * Electronic signature of Reg Fonseca MD on 01/02/2025 at 02:05 PM EDT Sign off status: Pending * Provider: Reg Fonseca M.D. Date: 08/11/2024 Generated for Benii ng/Fajamieg/eTransmitting on: 0 01/02/2025 02:05 PM EDT History [...]
--- OUTSIDE RECORDS SUMMARY | 2024-09-29 11:00 | XMS_ITS ---
Author [facility] [address] [facility] [address] [place] [id number] Care Team Providers Care Field Marketing Associate Name Role Phone Reg Fonseca Primary Care [...] Encounter Location Date Provider Diagnosis Jerem[place] [address] [facility] 36 [facility] [address] [place] [id number] 09/29/2024 Reg Fonseca Essential hypertensi on I10 [...] 3 Months, Reason: Provider Name:Reg Elias er, 01/05/2025 11:15:00 AM, [address] [facility] 36 [facility], [address], [place], [phone], Progress Notes * MOIBeata RUGGIEROOB:[birth year] (79 yo F)Acc No.[id number]:09/29/2024 Progress Notes Patient: Lucia ALFARO Provider: Reg Fonseca M.D. :1945 A ge:78 Y S ex:Female Date:09/29/2024 Address:[address] [place] [address], [place], [phone] Subjective: * Chief Complaints: * 1 . [...] A cquired hypothyroidism - E03.9 ?4. B [place] 22.0-22.9, adult - Z68.22 Plan: * Treatment: * Procedure Codes: G 2211 Complex e/m visit add on, 1036F TOBACCO NON-USER, G8783 BP SCR PRFRM RCMDD DEFIND SCR INTVL, G8752 MOST RECENT SYSTOLIC BP < 140MM HG, G8754 MOST RECENT DIASTOLIC BP < 90MM HG, G8420 BMI<30 AND >=22 CALC & DOCU * Follow Up: 3 Months * Images: Billing Information: * Visit Code: 16116 Office Visit, Est Pt., Level 3. * [...] Reg Fonseca M.D. Date: 09/29/2024 Generated for Wily corral/Chasity/eTransmitting on: 0 01/02/2025 02:05 PM EDT History [...]
--- OUTSIDE RECORDS SUMMARY | 2025-01-02 14:06 | XMS_ITS | Patient Health Record ---
Author Organization [facility] Address [address] [facility] [address] [place] [id number] Care Team Providers Care Assistant District Attorney Name Role Phone Reg Fonseca Primary Care Provider Allergies No Known Allergies Results Component Value Reference Range Notes P-Comprehensive Metabolic Pa venessa (CMP) Reviewed date:02/12/2024 04:15:14 PM Interpretation:Cr 1.08, gfr 52 Performing Lab: Notes/Report: Test performed by [facility] , [address], [place] [address] Kranthi Simeon MD, Incinerator Plant Supervisor CLIA: [id number] Sodium 142 135-145 mmol/L Potassium 4.4 3.5-5.3 [...] Interpretation:Normal Performing Lab: Notes/Report: Test performed by [employer] [address] , [address], [place] [address] Kranthi Simeon MD, Incinerator Plant Supervisor CLIA: [id number] TSH 3.32 0.43-5.25 mU/L P-Comprehensive Metabolic Pa venessa (CMP) Reviewed date:08/15/2024 10:18:17 AM Interpretation:creat 1.02, eGFR 56 Performing Lab: Notes/Report: Test performed by [employer] [address] , [address], [place] [address] Kranthi Simeon MD, Incinerator Plant Supervisor CLIA: [id number] Sodium 141 135-145 mmol/L Potassium 4.1 3.5-5.3 [...] Interpretation:Normal Performing Lab: Notes/Report: Test performed by [employer] [address] [place] [address] , [address], [place] [address] Kranthi Simeon MD, Incinerator Plant Supervisor CLIA: [id number] TSH 4.44 0.43-5.25 mU/L Mammogram Reviewed date:02/22/2024 11:12:14 AM Interpretation:Negative, annual f/u Performing Lab: Notes/Report: Negative, annual f/u result Negative, annual f/u Medications Medication SIG (Take, Route, Frequency, Duration) Notes Start Date End Date Status Alendronate Sodium 70 MG TAKE 1 TABLET O NE TIME WEEKLY; Duration: 84 Active Co Q10 100MG 1 TAB ORAL QD 03/28/2012 Ac tive Aspirin Adult Low Dose 81 MG orally only one aa day TAKES 2 DAILY Active hydroCHLOROthiazide 12.5 MG TAKE 1 TABLE T EVERY MORNING; Duration: 90 Active Multivitamin - 1 tab(s) orally once a day; Duration: 30 day(s) Active Fiber Choice 3 CAPS P.O. Q DAY Active Furosemide 20 MG 1 tab(s) orally as needed prn 10/06/2015 Active Pravastatin Sodium 80 MG TAKE 1 TABLET A T BEDTIME; Duration: 90 Active Potassium Chloride ER 10 MEQ 1 tablet with food Orally daily; Duration: 90 days Active Calcium 600 + Minerals 600-200 MG-UNIT 1 tab(s) orally once daily Active ICaps Active Losartan Potassium-HCTZ 100-12.5 MG 1 tablet Orally Once a day; Duration: 90 days Active Levothyroxine Sodium 75 MCG 1 tab(s) ora lly once a day; Duration: 90 days Active Immunizations Vaccine Route Administration Date Status Comme nts hZlmlqjl-ybnqfxlrp-dpebwrl e pts. IM Intramuscular 03/28/2012 Administered xFluzone (6mos and older)-trivalent IM Intramuscular 04/12/2010 Administered xFluzone (6mos and older)-trivalent IM Intramuscular 04/11/2011 Administered xAdministration of injection SC Subcutaneous 06/01/2014 Administered Tetanus Tdap-Adacel (over 7yrs) IM Intramuscular 09/08/2017 Administered Shingrix Unknown 01/25/2023 Administered Prevnar (PCV13) IM Intramuscular 04/21/2014 Administered PNEUMOVAX 23 VACCINE IM Intramuscular 09/08/2017 Administe red Fluzone PF Quad (6-35 months) Unknown 01/27/2023 Administered Fluzone High Dose (65yr and older) IM Intramuscular 01/28/2013 Administered Fluzone High Dose (65yr and older) IM Intramuscular 04/13/2015 Administered Fluzone High Dose (65yr and older) IM Intramuscular 01/21/2020 Administered Fluzone High Dose (65yr and older) IM Intramuscular 04/04/2021 Administered Fluzone High Dose (65yr and older) Unknown 01/21/2022 Administered Fluzone High Dose (65yr and older) IM Intramuscular 02/11/2024 Administered COVID 19 Moderna Unknown 01/20/2021 Administered Problems Problem Type SNOMED Code ICD Code Onset Dates Problem Status W/U Status Risk Notes Problem Essential hypertension (18147841) Essential hypertension (I10) Active confirmed Problem Actinic keratosis (915639) Actinic keratosis (L57.0) Active confirmed Problem Acquired hallux valgus (58232447) Hallux valgus (acquired), right foot (M20.11) Active confirmed Problem Acquired hypothyroidism (462408561) Acquired hypothyroidism (E03.9) Active confirmed Problem Renal insufficiency (521435339) Renal insufficiency (N28.9) Active confirmed Problem Osteoporosis (90873637) Osteoporosis (M81.0) Active confirmed Problem Hearing loss (65425362) Hearing deficit, bilateral (H91.93) Active confirmed Problem Aortic valve disorder (9692571) Aortic valve insufficiency, unspecified etiology (I35.1) Active confirmed Problem Dyslipidemia (276208175) Dyslipidemia (E78.5) Active confirmed Problem Temporomandibular joint disorder (62193339) TMJ (temporomandibula r joint disorder) (M26.609) Active confirmed Problem Osteoporosis (23238154) Osteoporosis, unspecified (M81.0) Active confirmed Problem Fibrocystic breast changes (10957648) Fibrocystic breast disease (FCBD), unspecified laterality (N60.19) Active confirmed Problem Cervical arthritis (disorder) (451739150) 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) Active confirmed Vital Signs Heart Rate 62 /min 09/29/2024 Blood pressure diastolic 62 mm Hg 09/29/2024 Height 63 in 09/29/2024 Blood pressure systolic 120 mm Hg 09/29/2024 Weight 128.6 lbs 09/29/2024 BMI 22.78 kg/m2 09/29/2024 Encounters Encounter Location Date Provider Diagnosis [facility] [address] [facility] [address] [place] [id number] 02/11/2024 Reg Fonseca Encounter for immunization Z23 ; Essential hypertension I10 ; Aortic valve insufficiency, unspecified etiology I35.1 ; Acquired hypothyroidism E03.9 ; Actinic keratoses L57.0 and Screen for colon cancer Z12.11 [facility] [address] [place] [id number] 08/11/2024 Reg Fonseca Essential hypertensi on I10 ; Acquired hypothyroidism E03.9 ; Renal insufficiency N28.9 ; Aortic valve insufficiency, unspecified etiology I35.1 ; Osteoporosis M81.0 ; BMI 23.0-23.9, adult Z68.23 and Osteoporosis, unspecified M81.0 [facility] [address] [place] [id number] 09/29/2024 Reg Fonseca Essential hypertensi on I10 ; Aortic valve insufficiency, unspecified etiology I35.1 ; Acquired hypothyroidism E03.9 and BMI 22.0-22.9, adult Z68.22 [facility] 1210 [facility] [address] [place] [id number] 02/12/2024 [facility] [address] [place] [id number] 08/15/2024 Reg Fonseca Assessments Encounter Date Diagnosis (ICD Code) Assessment Notes Treatment Notes Treatment Clinical Notes Section Notes 02/11/2024 Essential hypertension (ICD-10 - I10) 02/11/2024 Encounter for immunization (ICD-10 - Z23) 08/11/2024 Essential hypertension (ICD-10 - I10) 08/11/2024 Acquired hypothyroidism (ICD-10 - E03.9) 09/29/2024 Essential hypertension (ICD-10 - I10) cont Rx 09/29/2024 Aortic valve insufficiency, unspecified etiology (ICD-10 - I35.1) 09/29/2024 Acquired hypothyroidism (ICD-10 - E03.9) 08/11/2024 Renal insufficiency (ICD-10 - N28.9) 02/11/2024 Aortic valve insufficiency, unspecified etiology (ICD-10 - I35.1) 02/11/2024 Acquired hypothyroidism (ICD-10 - E03.9) 08/11/2024 Aortic valve insufficiency, unspecified etiology (ICD-10 - I35.1) 09/29/2024 BMI 22.0-22.9, adult (ICD-10 - Z68.22) 02/11/2024 Actinic keratoses (ICD-10 - L57.0) 08/11/2024 Osteoporosis (ICD-10 - M81.0) 02/11/2024 Screen for colon cancer (ICD-10 - Z12.11) 08/11/2024 BMI 23.0-23.9, adult (ICD-10 - Z68.23) 08/11/2024 Osteoporosis, unspecified (ICD-10 - M81.0) Plan Of Treatment Next Appt Details Provider Name:Reg Elias er, 01/05/2025 11:15:00 AM, [address] [facility], [address], [place], [place], [id number], Insurance Providers Payer Name Payer Address Payer Phone Subscriber Number Group Number Insured Name Patient Relationship to Insured Coverage Start Date Coverage End Date [employer] (MEDICAR E) [address] [address] [place] [address] [id number] Lucia Velasco Self - patient is the insured Medical (General) History Medical History History ICD Code hyperlipidemia bicuspid aortic valve, aortic insufficie ncy Basal cell CA left shoulder 07/2011 Flu shot 2022 Shingrix x2 Surgical History Surgery Date(Month/Year) tubal 1994 cataract (left) 06/2010
--- NOTE | 2025-01-02 14:30 | CA_ITS ---
APPROVED REPORT EXAM: Comprehensive 2D, Doppler, and color-flow Echocardiogram Dry Cleaner Apprentice: Kia Montgomery, RCS, RVS Ht: 5 ft 4 in Wt: 126lbs BSA: 1.61 BP: 138/62 mmHg Indications: Bicuspid AoV, SOA, Murmur, mildly dilated ascending aorta 4.0 cm. 2D Dimensions Left Atrium 4.00 cm F: 2.7 - 3.8 LVOT 1.71 cm (M/F) 1.5-2.5 M-Mode Dimensions RVDd 1.96 cm (0.9-2.6) LVDd 4.71 cm (3.5-5.7) Ao Diam 2.91 cm (2.0-3.7) LVDs 2.69 cm (3.5-5.7) IVSd 1.14 cm (0.6-1.1) PWd 0.79 cm (0.6-1.1) EF (Teich) 76.20% EPSs 0.14 cm FS 45.10% EDV (Teich) 112.80 mL TAPSE 1.14 (<1.7) ESV (Teich) 26.80 mL LV Diastology E Decel Time 267 (160-240 msec) E/A Ratio 1.0 MED E' 9.4 (>= 7 cm/sec) MED A' 12.10 cm/s E'/MED E' Ratio 8.56 (<= 14) LAT E' 6.8 (>= 10 cm/sec) LAT A' 11.60 cm/s E/LAT E' Ratio 11.84 (<= 14) Aortic Valve LVOT Max 116.0 (70-110 cm/s) JOSIE Index 0.81 cm2/m2 LVOT VTI 29.48 cm AoV Peak Daniel. 242.0 (50-130 cm/s) AI PHT 437.00 ms AO Peak GR. 25.80 mmHg AO Mean GR. 12.10 (<5 mmHg) AO VTI 51.9 (18-25 cm) JOSIE (VTI) 1.30 (2.5-4.5 cm2) Mitral Valve MV E Max Daniel. 81.0 (40-130 cm/s) MV A Velocity 79.0 (40-130 cm/s) E/A Ratio 1.02 MV Decel. Time 267 (160-240 ms) MV Mean Gr. 2.80 (<2mmHg) Left Ventricle The left ventricle is normal size. LVEDD=5.2 cm. LVESD=2.2 cm. Left ventricular systolic function is normal. The left ventricular ejection fraction is within the normal range. There is increased left ventricular wall thickness. There is normal LV segmental wall motion. The left ventricular diastolic function is indeterminate. LVEF is 60% Right Ventricle The right ventricle is normal size. The right ventricular systolic function is normal. Atria The left atrium is mildly dilated. The right atrium size is normal. There is no color Doppler evidence of interatrial shunt. Aortic Valve Known history of bicuspid aortic valve with presence of raphe between the right and left coronary cusps. The aortic valve is mildly thickened. Mild aortic stenosis is present. JOSIE by continuity equation is 1.6 cm2. Peak velocity is 2.5 m/s. Mean AV gradient is 13 mmHg. Max AV gradient is 25 mmHg. Moderate aortic regurgitation is present. The AI jet is eccentric. Mitral Valve The mitral valve is normal in structure. No evidence of mitral valve stenosis. Mild mitral regurgitation is present. Tricuspid Valve The tricuspid valve leaflets are thin and pliable. Trace tricuspid regurgitation. There is insufficient TR jet to estimate RVSP. Pulmonic Valve The pulmonary valve is grossly normal in structure. Trace pulmonic valve regurgitation is present. Great Vessels The aortic root is normal in size. The ascending aorta is not well visualized (previously noted to be previously dilated with diameter of 4.0 cm on prior TTE from 2022) IVC is normal in size and collapses >50% with inspiration. Pericardium There is no pericardial effusion. Other Information Study Quality: Fair Conclusion Normal biventricular size and systolic function. LVEDD=5.2 cm. LVESD=2.2 cm. Mild LA dilation. Known bicuspid AoV with presence of raphe between the right and left coronary cusps. Moderate AI with eccentirc jet. Mild (JOSIE by continuity equation is 1.6 cm2. Peak velocity is 2.5 m/s. Mean AV gradient is 13 mmHg. Max AV gradient is 25 mmHg). Mild MR. The ascending aorta is not well visualized (previously noted to be previously dilated with diameter of 4.0 cm on prior TTE from 2022) Electronically signed by : Narcisa Perez MD 01/03/2025 01:28:34
== END 2025-01-02 23:59 | disposition home or self-care (01) ==
LOC: RT 13:57
PROVIDERS: PCP Family Medicine; Visit Provider Nurse Practitioner Family
DX: Q23.81 Bicuspid aortic valve (principal); I08.0 Rheumatic disorders of both mitral and aortic valves; I77.810 Thoracic aortic ectasia
CPT/HCPCS: 93306

== ENCOUNTER 2025-01-05 13:12 | Outpatient (CLI) | payer MEDICARE, SELFPAY ==
--- OUTSIDE RECORDS SUMMARY | 2023-08-13 06:00 | XMS_ITS ---
Author Organization [facility] Address [address] [facility] [address] [place] [id number] Care Team Providers Care Comic Book Artist Name Role Phone Reg Fonseca Primary Care Provider Allergies No Known Allergies Results Component Value Reference Range Notes P-Comprehensive Metabolic Pa venessa (CMP) Reviewed date:08/15/2023 09:27:18 AM Interpretation:co2 21, gfr 58 Performing Lab: Notes/Report: Test performed by [employer], [employer] [address] [place] [address] , [address], [place] [address] Kranthi Simeon MD, Jet Wiper CLIA: [id number] Sodium 140 135-145 mEq/L Potassium 4.3 3.5-5.3 [...] Interpretation:Normal Performing Lab: Notes/Report: Test performed by [employer], [employer] [address] [place] [address] , [address], [place] [address] Kranthi Simeon MD, Jet Wiper CLIA: [id number] TSH 2.28 0.43-5.25 mU/L REASON FOR VISIT [...] 08/13/2023 Encounters Encounter Location Date Provider Diagnosis [facility] [address] [place], [place] [id number] 08/13/2023 Reg Fonseca Aortic valve insufficiency, unspecified [...] Details Follow Up: 6 Months, Reason: Provider Name:Breann toro, 02/04/2025 10:00:00 AM, [address], [address], [place], [place], [id number], Procedure Notes * Category Sub-Category Detail Notes Cryotherapy Actinic Keratosis Method: Wa llach LL-100 used to freeze and refreeze the lesions, of the right forearm and he left hand, dorsum, The patient tolerated the procedure well. Progress Notes * Beata MOLINAOB:[birth year] (79 yo F)Acc No.[id number]:08/13/2023 Progress Notes Patient: Lucia ALFARO Provider: Reg Fonseca M.D. :1945 A ge:77 Y S ex:Female Date:08/13/2023 Address:[address] [place] [address], [place], [id number] Subjective: * Chief Complaints: * 1 . [...] 7000 DESTRUCTION BENIGN LESION, CRYOSURGERY,ELECTROSURGERY FIRST LESION, 95603 DESTRUCTION BENIGN LESION,CRYO, ELECTRO, 2-14 LESIONS * Follow Up: 6 Months * Images: Billing Information: * Visit Code: 23186 Office Visit, Est Pt., Level 4. * Procedure Codes: 16073 DESTRUCTION BENIGN LESION, CRYOSURGERY,ELECTROSURGERY FIRST LESION. 06273 DESTRUCTION BENIGN LESION,CRYO, ELECTRO, 2-14 LESIONS. * Electronic signature of Reg Fonseca MD on 01/05/2025 at 01:15 PM EDT Sign off status: Pending * Provider: Reg Fonseca M.D. Date: 0 08/13/2023 Generated for Wily corral/Chasity/Kellyitting on: 0 01/05/2025 01:15 PM EDT History and Physical Notes * [...]
--- OUTSIDE RECORDS SUMMARY | 2024-02-11 05:30 | XMS_ITS ---
Author Organization [facility] Address 1210 [facility] [address] [place] [id number] Care Team Providers Care Electric Organ Assembler Name Role Phone Reg Fonseca Primary Care Provider [phone] Allergies No Known Allergies Results Component Value Reference Range Notes P-Comprehensive Metabolic Pa venessa (CMP) Reviewed date:02/12/2024 04:15:14 PM Interpretation:Cr 1.08, gfr 52 Performing Lab: Notes/Report: Test performed by [facility] [address] [place] [address] , [address], [place] [address] Kranthi Simeon MD, Fire Lieutenant CLIA: [id number] Sodium 142 135-145 mmol/L Potassium 4.4 3.5-5.3 [...] Interpretation:Normal Performing Lab: Notes/Report: Test performed by [facility], [facility] , [address], [place] [address] Kranthi Simeon MD, Fire Lieutenant CLIA: [id number] TSH 3.32 0.43-5.25 mU/L Reason For Referral [...] Encounter Location Date Provider Diagnosis [facility] [address] [facility] [address] [place] [id number] 02/11/2024 Reg Fonseca Encounter for immunization Z23 [...] Provider Name:Breann toro, 02/04/2025 10:00:00 AM, [address] [facility] [address], [address], [place], [id number], Progress Notes * Beata MOLINAOB:[birth year] (79 yo F)Acc No.[id number]:02/11/2024 Progress Notes Patient: Choco ALFAROon Provider: Reg Fonseca M.D. :1945 A ge:78 Y S ex:Female Date:02/11/2024 Address:[address] [place] [address] GONZALEZ, Rolando LOADELINEANGEL, [phone] Subjective: * Chief Complaints: * 1 . [...] * Images: Billing Information: * Visit Code: 61277 Office Visit, Est Pt., Level 4. * Procedure Codes: * Electronic signature of Reg Fonseca MD on 01/05/2025 at 01:15 PM EDT Sign off status: Pending * Provider: Reg Fonseca M.D. Date: 1 Generated for Benii shayna/Chasity/eTransmitting on: 0 01/05/2025 01:15 PM EDT History [...]
--- OUTSIDE RECORDS SUMMARY | 2024-08-11 05:30 | XMS_ITS ---
Author Organization [facility] Address 1210 [facility] 36 [facility] [address] [place] [id number] Care Team Providers Care Tongue Stitcher Name Role Phone Reg Fonseca Primary Care Provider Allergies No Known Allergies Results Component Value Reference Range Notes P-Comprehensive Metabolic Pa venessa (CMP) Reviewed date:08/15/2024 10:18:17 AM Interpretation:creat 1.02, eGFR 56 Performing Lab: Notes/Report: Test performed by [facility] [address] [place] [address] , [address], [place] [address] Kranthi Simeon MD, Field Naturalist CLIA: [id number] Sodium 141 135-145 mmol/L Potassium 4.1 3.5-5.3 [...] Interpretation:Normal Performing Lab: Notes/Report: Test performed by [email or web address], [facility] , [address], [place] [address] Kranthi Simeon MD, Field Naturalist CLIA: [id number] TSH 4.44 0.43-5.25 mU/L REASON FOR VISIT [...] Status W/U Status Risk Notes Problem Osteoporosis (36852016) Osteoporosis, unspecified (M81.0) Active confirmed Vital Signs Blood pressure systolic 174 mm Hg 08/12/19 25 Blood pressure diastolic 62 mm Hg 025 Heart Rate 58 /min 08/11/2024 Height 63 in 08/11/2024 Weight 131.2 lbs 08/11/2024 BMI 23.24 kg/m2 08/11/2024 Encounters Encounter Location Date Provider Diagnosis [facility] [address] [place], [place] [id number] 08/11/2024 Rge Fonseca Essential hypertensi on I10 ; Acquired [...] Details Follow Up: 6 Weeks, Reason: Provider Name:Breann Arnold Jhonrichard toro, 02/04/2025 10:00:00 AM, [address] [facility], [address] , [place], [place], [phone], Progress Notes * MOIBeata RUGGIREOOB:[birth year] (79 yo F)Acc No.[id number]:08/11/2024 Progress Notes Patient: Lucia ALFARO Provider: Reg Fonseca M.D. :1945 A ge:78 Y S ex:Female Date:08/11/2024 Address:[address] [place] [address], [place] [phone] Subjective: * Chief Complaints: * 1 . [...] . O steoporosis - M81.0 6. B MA 23.0-23.9, adult - Z68.23 7 . O [...] * Images: Billing Information: * Visit Code: 84563 Office Visit, Est Pt., Level 4. * Procedure Codes: G2211 Complex e/m visit add on. 3077F SYST BP = 140 MM HG6 IT. 3078F DIAST BP < 80 MM HG. * Electronic signature of Reg Fonseca MD on 01/05/2025 at 01:15 PM EDT Sign off status: Pending * Provider: Reg Fonseca M.D. Date: 0 08/11/2024 Generated for Benii ng/Fajamieg/eTransmitting on: 0 01/05/2025 01:15 PM EDT History [...]
--- OUTSIDE RECORDS SUMMARY | 2024-09-29 11:00 | XMS_ITS ---
Author Organization [facility] Address [address] [facility] [address] [place] [id number] Care Team Providers Care Gas Meter Installer Name Role Phone Reg Fonseca Primary Care [...] Encounter Location Date Provider Diagnosis Jeremías [address] [facility] 36 [facility] [address] [place] [id number] 09/29/2024 Reg Fonseca Essential hypertensi on I10 [...] Details Follow Up: 3 Months, Reason: Provider Name:Breann Ferreirarichard toro, 02/04/2025 10:00:00 AM, [address] [facility] 36 [facility], [address], [place], [phone], Progress Notes * MOIBeata RUGGIEROOB:[birth year] (79 yo F)Acc No.[id number]:09/29/2024 Progress Notes Patient: Lucia ALFARO Provider: Reg Fonseca M.D. :1945 A ge:78 Y S ex:Female Date:09/29/2024 Address:[address] [place] [address], [place], [id number] Subjective: * Chief Complaints: * 1 . [...] A cquired hypothyroidism - E03.9 ?4. B TN 22.0-22.9, adult - Z68.22 Plan: * Treatment: * Procedure Codes: G 2211 Complex e/m visit add on, 1036F TOBACCO NON-USER, G8783 BP SCR PRFRM RCMDD DEFIND SCR INTVL, G8752 MOST RECENT SYSTOLIC BP < 140MM HG, G8754 MOST RECENT DIASTOLIC BP < 90MM HG, G8420 BMI<30 AND >=22 CALC & DOCU * Follow Up: 3 Months * Images: Billing Information: * Visit Code: 85936 Office Visit, Est Pt., Level 3. * [...] 09/29/2024 Generated for Wily corral/Chasity/eTransmitting on: 0 01/05/2025 01:15 PM EDT History [...]
--- OUTSIDE RECORDS SUMMARY | 2025-01-05 13:16 | XMS_ITS | Patient Health Record ---
Author Organization [facility] Address [address] [facility] [address] [place] [phone] Care Team Providers Care Coal And Ash Supervisor Name Role Phone Reg Fonseca Primary Care Provider Allergies No Known Allergies Results Component Value Reference Range Notes P-Comprehensive Metabolic Pa venessa (CMP) Reviewed date:02/12/2024 04:15:14 PM Interpretation:Cr 1.08, gfr 52 Performing Lab: Notes/Report: Test performed by [employer] [facility] , [address], [place] [address] Kratnhi Simeon MD, Primary Operator CLIA: [id number] Sodium 142 135-145 mmol/L Potassium 4.4 3.5-5.3 [...] Interpretation:Normal Performing Lab: Notes/Report: Test performed by [facility] [address] , [address], [place] [address] Kranthi Simeon MD, Primary Operator CLIA: [id number] TSH 3.32 0.43-5.25 mU/L P-Comprehensive Metabolic Pa venessa (CMP) Reviewed date:08/15/2024 10:18:17 AM Interpretation:creat 1.02, eGFR 56 Performing Lab: Notes/Report: Test performed by [facility] [address] , [address], [place] [address] Kranthi Simeon MD, Primary Operator CLIA: [id number] Sodium 141 135-145 mmol/L Potassium 4.1 3.5-5.3 [...] Interpretation:Normal Performing Lab: Notes/Report: Test performed by [employer] [address] [place] [address] , [address], [place] [address] Kranthi Simeon MD, Primary Operator CLIA: [id number] TSH 4.44 0.43-5.25 mU/L Mammogram Reviewed date:02/22/2024 11:12:14 AM Interpretation:Negative, annual f/u Performing Lab: Notes/Report: Negative, annual f/u result Negative, annual f/u Medications Medication SIG (Take, Route, Frequency, Duration) Notes Start Date End Date Status hydroCHLOROthiazide 12.5 MG TAKE 1 TABLE T EVERY MORNING; Duration: 90 Active methylPREDNISolone 4 MG as directed Orally 025 Active Multivitamin - 1 tab(s) orally once a day; Duration: 30 day(s) Active ICaps Active Calcium 600 + Minerals 600-200 MG-UNIT 1 tab(s) orally once daily Active Levothyroxine Sodium 75 MCG 1 tab(s) ora lly once a day; Duration: 90 days Active Furosemide 20 MG 1 tab(s) orally as needed prn 10/06/2015 Active Potassium Chloride ER 10 MEQ 1 tablet with food Orally daily; Duration: 90 days Active Aspirin Adult Low Dose 81 MG orally only one aa day TAKES 2 DAILY Active Losartan Potassium-HCTZ 100-12.5 MG 1 tablet Orally Once a day; Duration: 90 days Active Co Q10 100MG 1 TAB ORAL QD 03/28/2012 Ac tive Fiber Choice 3 CAPS P.O. Q DAY Active Alendronate Sodium 70 MG TAKE 1 TABLET O NE TIME WEEKLY; Duration: 84 Active Pravastatin Sodium 80 MG TAKE 1 TABLET A T BEDTIME; Duration: 90 Active Immunizations Vaccine Route Administration Date Status Comme nts COVID 19 Moderna Unknown 01/20/2021 Administered Fluzone High Dose (65yr and older) IM Intramuscular 01/28/2013 Administered Fluzone High Dose (65yr and older) IM Intramuscular 04/13/2015 Administered Fluzone High Dose (65yr and older) IM Intramuscular 01/21/2020 Administered Fluzone High Dose (65yr and older) IM Intramuscular 04/04/2021 Administered Fluzone High Dose (65yr and older) Unknown 01/21/2022 Administered Fluzone High Dose (65yr and older) IM Intramuscular 02/11/2024 Administered Fluzone PF Quad (6-35 months) Unknown 01/27/2023 Administered PNEUMOVAX 23 VACCINE IM Intramuscular 09/08/2017 Administe red Prevnar (PCV13) IM Intramuscular 04/21/2014 Administered Shingrix Unknown 01/25/2023 Administered Tetanus Tdap-Adacel (over 7yrs) IM Intramuscular 09/08/2017 Administered xAdministration of injection SC Subcutaneous 06/01/2014 Administered xFluzone (6mos and older)-trivalent IM Intramuscular 04/12/2010 Administered xFluzone (6mos and older)-trivalent IM Intramuscular 04/11/2011 Administered rScsepei-mvhcdglfu-zbbpwhh e pts. IM Intramuscular 03/28/2012 Administered Problems Problem Type SNOMED Code ICD Code Onset Dates Problem Status W/U Status Risk Notes Problem Essential hypertension (19011075) Essential hypertension (I10) Active confirmed Problem Actinic keratosis (588514) Actinic keratosis (L57.0) Active confirmed Problem Acquired hallux valgus (00500089) Hallux valgus (acquired), right foot (M20.11) Active confirmed Problem Acquired hypothyroidism (240211576) Acquired hypothyroidism (E03.9) Active confirmed Problem Renal insufficiency (276307329) Renal insufficiency (N28.9) Active confirmed Problem Osteoporosis (23988601) Osteoporosis (M81.0) Active confirmed Problem Hearing loss (02267433) Hearing deficit, bilateral (H91.93) Active confirmed Problem Aortic valve disorder (2744223) Aortic valve insufficiency, unspecified etiology (I35.1) Active confirmed Problem Dyslipidemia (725812165) Dyslipidemia (E78.5) Active confirmed Problem Pain in right sacroiliac joint (41519161636597655) Pain of right sacroiliac joint (M53.3) Active confirmed Problem Temporomandibular joint disorder (33118626) TMJ (temporomandibula r joint disorder) (M26.609) Active confirmed Problem Osteoporosis (12275047) Osteoporosis, unspecified (M81.0) Active confirmed Problem Fibrocystic breast changes (45505675) Fibrocystic breast disease (FCBD), unspecified laterality (N60.19) Active confirmed Problem Cervical arthritis (disorder) (695963369) 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) Active confirmed Vital Signs Heart Rate 59 /min 01/05/2025 Blood pressure diastolic 70 mm Hg 01/05/2025 Height 63 in 01/05/2025 Blood pressure systolic 120 mm Hg 01/05/2025 Weight 126.4 lbs 01/05/2025 BMI 22.39 kg/m2 01/05/2025 Encounters Encounter Location Date Provider Diagnosis [facility] [address] [facility] [address] [place], [place] [id number] 02/11/2024 Reg Fonseca Encounter for immunization Z23 ; Essential hypertension I10 ; Aortic valve insufficiency, unspecified etiology I35.1 ; Acquired hypothyroidism E03.9 ; Actinic keratoses L57.0 and Screen for colon cancer Z12.11 [facility] [address] [place] [id number] 08/11/2024 Reg Fonseca Essential hypertensi on I10 ; Acquired hypothyroidism E03.9 ; Renal insufficiency N28.9 ; Aortic valve insufficiency, unspecified etiology I35.1 ; Osteoporosis M81.0 ; BMI 23.0-23.9, adult Z68.23 and Osteoporosis, unspecified M81.0 [facility] [address] [place], [place] [id number] 09/29/2024 Reg Fonseca Essential hypertensi on I10 ; Aortic valve insufficiency, unspecified etiology I35.1 ; Acquired hypothyroidism E03.9 and BMI 22.0-22.9, adult Z68.22 [facility] [address] [place] [id number] 01/05/2025 Reg Fonseca Aortic valve insufficiency, unspecified etiology I35.1 ; Essential hypertension I10 ; Acquired hypothyroidism E03.9 ; Renal insufficiency N28.9 and Pain of right sacroiliac joint M53.3 [facility] [address] [place] [id number] 02/12/2024 [facility]sec[facility] [address] [place] [id number] 08/15/2024 Reg Fonseca Assessments Encounter Date Diagnosis (ICD Code) Assessment Notes Treatment Notes Treatment Clinical Notes Section Notes 02/11/2024 Essential hypertension (ICD-10 - I10) 02/11/2024 Encounter for immunization (ICD-10 - Z23) 08/11/2024 Essential hypertension (ICD-10 - I10) 08/11/2024 Acquired hypothyroidism (ICD-10 - E03.9) 09/29/2024 Essential hypertension (ICD-10 - I10) cont Rx 09/29/2024 Aortic valve insufficiency, unspecified etiology (ICD-10 - I35.1) 01/05/2025 Essential hypertension (ICD-10 - I10) 01/05/2025 Aortic valve insufficiency, unspecified etiology (ICD-10 - I35.1) 01/05/2025 Acquired hypothyroidism (ICD-10 - E03.9) 09/29/2024 Acquired hypothyroidism (ICD-10 - E03.9) 08/11/2024 Renal insufficiency (ICD-10 - N28.9) 02/11/2024 Aortic valve insufficiency, unspecified etiology (ICD-10 - I35.1) 02/11/2024 Acquired hypothyroidism (ICD-10 - E03.9) 08/11/2024 Aortic valve insufficiency, unspecified etiology (ICD-10 - I35.1) 09/29/2024 BMI 22.0-22.9, adult (ICD-10 - Z68.22) 01/05/2025 Renal insufficiency (ICD-10 - N28.9) 01/05/2025 Pain of right sacroiliac joint (ICD-10 - M53.3) 08/11/2024 Osteoporosis (ICD-10 - M81.0) 02/11/2024 Actinic keratoses (ICD-10 - L57.0) 02/11/2024 Screen for colon cancer (ICD-10 - Z12.11) 08/11/2024 BMI 23.0-23.9, adult (ICD-10 - Z68.23) 08/11/2024 Osteoporosis, unspecified (ICD-10 - M81.0) Plan Of Treatment Pending Test Test Name Order Date X ray : Spine, lumbosacral 01/05/2025 P-Basic Metabolic Panel (BMP) 01/05/2025 Next Appt Details Provider Name:Breann toro, 02/04/2025 10:00:00 AM, [address], [address], [place], [place], [id number], Insurance Providers Payer Name Payer Address Payer Phone Subscriber Number Group Number Insured Name Patient Relationship to Insured Coverage Start Date Coverage End Date [employer] (MEDICAR E) [address] [address] [place] [address] [id number] Lucia Velasco Self - patient is the insured Medical (General) History Medical History History ICD Code hyperlipidemia bicuspid aortic valve, aortic insufficie ncy Basal cell CA left shoulder 07/2011 Flu shot 2022 Shingrix x2 Surgical History Surgery Date(Month/Year) tubal 1994 cataract (left) 06/2010
--- NOTE | 2025-01-05 13:22 | XR_ITS ---
FINAL REPORT TECHNIQUE: 5 views of the lumbar spine were obtained. CLINICAL HISTORY: PAIN OF RIGHT SCROLLIAC JOINT COMPARISON: None FINDINGS: AP, lateral, and oblique views of the lumbar spine were obtained. There is no acute fracture or acute malalignment. There is grade 1 spondylolisthesis of L5 on S1. There is a mild compression deformity of the superior endplate of L2, favor chronic. Multilevel degenerative disc disease is present, mild, most pronounced at the L5-S1 level. There are degenerative changes present involving the SI joints bilaterally, without acute bony abnormality. No acute paraspinal abnormality is identified. IMPRESSION: Degenerative changes as described above, including the bilateral SI joints. Consider a sacroiliac radiograph series for further evaluation if indicated. Mild compression deformity of the superior endplate of L2, favor chronic. Reviewed, Interpreted and Dictated by Carli Hill MD Transcribed by Marnie Schroeder Authenticated and . [facility]
== END 2025-01-05 23:59 | disposition home or self-care (01) ==
LOC: RAD 13:13
PROVIDERS: PCP Family Medicine; Visit Provider Family Medicine
DX: M47.816 Spondylosis without myelopathy or radiculopathy, lumbar region (principal); M47.817 Spondylosis without myelopathy or radiculopathy, lumbosacral region; M46.1 Sacroiliitis, not elsewhere classified; M48.56XA Collapsed vertebra, not elsewhere classified, lumbar region, initial encounter for fracture
CPT/HCPCS: 72110

== ENCOUNTER 2025-03-09 07:33 | Outpatient (CLI) | payer MEDICARE, SELFPAY ==
--- OUTSIDE RECORDS SUMMARY | 2024-02-11 04:30 | XMS_ITS ---
Author Organization [facility] Address [address] [facility] [address] [facility] [address] [place] [id number] Care Team Providers Care Die Forger Name Role Phone Reg Fonseca Primary Care Provider Allergies No Known Allergies Results Component Value Reference Range Notes P-Comprehensive Metabolic Pa venessa (CMP) Reviewed date:02/12/2024 04:15:14 PM Interpretation:Cr 1.08, gfr 52 Performing Lab: Notes/Report: CLIA: [id number] Kranthi Simeon MD, Earth Science Faculty Member [address] [facility] , [address], [place] [address] Test performed by [employer], [facility] Sodium 142 135-145 mmol/L Potassium 4.4 3.5-5.3 mmol/L Chloride 104 97-108 mmol/L CO2 28 22-32 mmol/L Glucose 88 65-99 mg/dL BUN 19 8-23 mg/dL Creatinine 1.08 0.50-1.00 mg/dL Calcium 9.8 8.6-10.4 mg/dL eGFR by Creatinine 52 >59 mL/min/1.73m2 Protein 6.5 6.0-8.3 g/dL Albumin 4.4 3.5-5.3 g/dL Alkaline Phosphatase 66 35-121 IU/L ALT (SGPT) 16 <5-47 IU/L AST (SGOT) 21 <5-40 IU/L Bilirubin, Total 0.5 <0.2-1.2 mg/dL A/G Ratio 2.1 1.1-2.5 P-TSH Reviewed date:02/12/2024 04:15:15 PM Interpretation:Normal Performing Lab: Notes/Report: Test performed by [employer], [employer] [facility] [facility] , [address], [place] [address] Kranthi Simeon MD, Earth Science Faculty Member CLIA: [id number] TSH 3.32 0.43-5.25 mU/L Reason For Referral Diagnosis 1 Screen for colon can cer (Z12.11) Referral Organization [facility] Referring Provider First Name Reg Ribera Referring Provider Last Name Raymundo Referring Provider Speciality Family Pra ctice Referred Provider MONICA HUNTER Referred Provider Specialty Gastroentero logy General Notes Needs to meet to dis cuss colonoscopy, Noris Hogan 02/12/2024 1:54:47 PM > assigned to Velma jimenez Brynn 02/12/2024 2:03:36 PM > faxed to Dr. Hunter Referral Priority Routine REASON FOR VISIT 6 Month Check Up, Needs labs, colon cancer screening, & flu vaccine Medications Medication SIG (Take, Route, Frequency, Duration) Notes Start Date End Date Status Calcium 600 + Minerals 600-200 MG-UNIT 1 tab(s) orally once daily Active Potassium Chloride ER 10 MEQ TAKE 1 TABLET EVERY DAY; Duration: 90 Active Losartan Potassium-HCTZ 100-12.5 MG TAKE 1 TABLET EVERY DAY; Duration: 90 Active Levothyroxine Sodium 75 MCG 1 tab(s) orally once a day; Duration: 90 days Active Alendronate Sodium 70 MG 1 tab(s) orally once a week; Duration: 84 Active Fiber Choice 3 CAPS P.O. Q DAY Active Multivitamin - 1 tab(s) orally once a day; Duration: 30 day(s) Active ICaps Active Aspirin Adult Low Dose 81 MG orally only one aa day TAKES 2 DAILY Active Co Q10 100MG 1 TAB ORAL QD 03/28/2012 Ac tive Furosemide 20 MG 1 tab(s) orally as needed prn 10/06/2015 Active Pravastatin Sodium 80 MG TAKE 1 TABLET A T BEDTIME; Duration: 90 Active Immunizations Vaccine Route Administration Date Status Comme nts Fluzone High Dose (65yr and older) IM Intramuscular 02/11/2024 Administered Vital Signs Blood pressure systolic 126 mm Hg 02/11/20 24 Blood pressure diastolic 68 mm Hg 024 Heart Rate 60 /min 02/11/2024 Height 63 in 02/11/2024 Weight 130.4 lbs 02/11/2024 BMI 23.10 kg/m2 02/11/2024 Encounters Encounter Location Date Provider Diagnosis [facility] [address] [facility] [address] [facility] [address] [place] [id number] 02/11/2024 Reg Fonseca Encounter for immunization Z23 ; Essential hypertension I10 ; Aortic valve insufficiency, unspecified etiology I35.1 ; Acquired hypothyroidism E03.9 ; Actinic keratoses L57.0 and Screen for colon cancer Z12.11 Assessments Encounter Date Diagnosis (ICD Code) Assessment Notes Treatment Notes Treatment Clinical Notes Section Notes 02/11/2024 Encounter for immunization (ICD-10 - Z23) 02/11/2024 Essential hypertension (ICD-10 - I10) 02/11/2024 Aortic valve insufficiency, unspecified etiology (ICD-10 - I35.1) 02/11/2024 Acquired hypothyroidism (ICD-10 - E03.9) 02/11/2024 Actinic keratoses (ICD-10 - L57.0) 02/11/2024 Screen for colon cancer (ICD-10 - Z12.11) Plan Of Treatment Referrals Referral Date Details 02/11/2024 02/11/2024, MONICA DEJESUS Next Appt Details Follow Up: 6 Months, Reason: Provider Name:Reg Elias er, 03/09/2025 09:45:00 AM, [address] [facility] [address] [facility], [address], [place], [id number], Progress Notes * Beata MOLINAOB:[birth year] (79 yo F)Acc No.[id number]:02/11/2024 Progress Notes Patient: Choco ALFAROon Provider: Reg Fonseca M.D. :1945 A ge:78 Y S ex:Female Date:02/11/2024 Address:[address] [place] [address] [address], [place], [id number] Subjective: * Chief Complaints: * 1 . 6 Month Check Up. 2. Needs labs, colon cancer screening, & flu vaccine. * HPI: C ardiology: The patient is here for a check up on Hypertension and Hypothyroidism. Pt states she is doing good and denies any new concerns. Pt is fasting. Denies : Chest Pain. D enies [...] 1 tab(s) orally once daily , Taking Levothyroxine Sodium 75 MCG Tablet 1 tab(s) orally once a day , Taking Alendronate Sodium 70 MG Tablet 1 tab(s) orally once a week , Taking Losartan Potassium-HCTZ 100-12.5 MG Tablet TAKE 1 TABLET EVERY DAY , Taking Potassium Chloride ER 10 MEQ Tablet Extended Release TAKE 1 TABLET EVERY DAY , Taking Pravastatin Sodium 80 MG Tablet TAKE 1 TABLET AT BEDTIME , Medication List reviewed and reconciled with the patient * Allergies: N .K.D.A. Objective: * Vitals: W t:130.4, Temp:97.9, BP:126/68, HR:60, Nurse:CATRACHO, Ht: 63, BMI:23.10. * Examination: G eneral Examination: General Appearance: [...] N eurologic Exam: I ntact, gait normal. P eripheral pulses: n ormal. B ack: mild dorsal kyphosis. E xtremities: t race leg edema.? Assessment: * Assessment: 1. E ssential hypertension - I10 (Primary) 2 . E ncounter for immunization - Z23 3 . A ortic valve insufficiency, unspecified etiology - I35.1 ?4. A cquired hypothyroidism - E03.9 5 . A ctinic keratoses - L57.0 6 . S creen for colon cancer - Z12.11 Plan: * Treatment: Value Reference Range A /G Ratio 2.1 1.1-2.5 - * A lbumin 4.4 3.5-5.3 - g/dL * A lkaline Phosphatase 66 35-121 - IU/L * A LT (SGPT) 16 <5-47 - IU/L * A ST (SGOT) 21 <5-40 - IU/L * B ilirubin, Total 0.5 <0.2-1.2 - mg/dL * B UN 19 8-23 - mg/dL * C alcium 9.8 8.6-10.4 - mg/dL * C hloride 104 97-108 - mmol/L * C O2 28 22-32 - mmol/L * C reatinine 1.08 H 0.50-1.00 - mg/dL * G lucose 88 65-99 - mg/dL * P otassium 4.4 3.5-5.3 - mmol/L * S odium 142 135-145 - mmol/L * P rotein 6.5 6.0-8.3 - g/dL * e GFR by Creatinine 52 L >59 - mL/min/1.73m2 * Noris Hogan 02/12/2024 4:15 :05 PM >See phone encounter 2.?Acquired hypothyroidism?LAB: P-TSH (Collection Date & Time - 02/11/2024 09:29 AM)?Normal* Value Reference Range T SH 3.32 0.43-5.25 - mU/L * Noris Hogan 02/12/2024 4:15 :05 PM >See phone encounter 3.?Screen for colon cancer? Referral To:MONICA HUNTER??Gastroenterology ?Reason: * Immunizations: Fluzone High Dose (65yr and older) : 0.5 mL (Route: Intramuscular) given by Sadie Ledesma on Left Deltoid (Encounter for immunization) * Follow Up: 6 Months * Images: Billing Information: * Visit Code: 10669 Office Visit, Est Pt., Level 4. * Procedure Codes: * Electronic signature of Reg Fonseca MD on 03/09/2025 at 07:35 AM EST Sign off status: Pending * Provider: Reg Fonseca M.D. Date: Generated for Benii shayna/Chasity/eTransmitting on: 05/09/2024 07:35 AM EST History and Physical Notes * HPI (History [...] trace leg edema General Appearance: NAD Skin: Neurologic Exam: Intact, gait normal Neck: supple, no lymphaden opathy Oral cavity: no lesions, mucosa m oist and WNL, no erythema Peripheral pulses: normal Back: mild dorsal kyphosis Chest: normal shape and exp ansion Consultation Request Notes Referral Date Referring Provider Referred Provider Not es 02/11/2024 Reg Fonseca EARL
--- OUTSIDE RECORDS SUMMARY | 2024-08-11 04:30 | XMS_ITS ---
Author Organization [facility] Address 1210 [facility] [address] [place] [id number] Care Team Providers Care Multi Care Technician Name Role Phone Reg Fonseca Primary Care Provider Allergies No Known Allergies Results Component Value Reference Range Notes P-Comprehensive Metabolic Pa venessa (CMP) Reviewed date:08/15/2024 10:18:17 AM Interpretation:creat 1.02, eGFR 56 Performing Lab: Notes/Report: CLIA: [id number] Kranthi Simeon MD, Vocational Rehabilitation Supervisor [address] [facility] , [address], [place] [address] Test performed by [facility] Sodium 141 135-145 mmol/L Potassium 4.1 3.5-5.3 mmol/L Chloride 106 97-108 mmol/L CO2 26 22-32 mmol/L Glucose 88 65-99 mg/dL BUN 13 8-23 mg/dL Creatinine 1.02 0.50-1.00 mg/dL Calcium 8.9 8.6-10.4 mg/dL eGFR by Creatinine 56 >59 mL/min/1.73m2 Protein 6.9 6.0-8.3 g/dL Albumin 4.2 3.5-5.3 g/dL Alkaline Phosphatase 88 35-121 IU/L ALT (SGPT) 13 <5-47 IU/L AST (SGOT) 22 <5-40 IU/L Bilirubin, Total 0.9 <0.2-1.2 mg/dL A/G Ratio 1.6 1.1-2.5 P-TSH Reviewed date:08/15/2024 10:18:17 AM Interpretation:Normal Performing Lab: Notes/Report: Test performed by [facility], [facility]0 [facility] , [address], [place] [address] Kranthi Simeon MD, Vocational Rehabilitation Supervisor CLIA: [id number] TSH 4.44 0.43-5.25 mU/L REASON FOR VISIT 6 Month Check Up, Needs labs & bone density screening Medications Medication SIG (Take, Route, Frequency, Duration) Notes Start Date End Date Status hydroCHLOROthiazide 12.5 MG 1 tablet in the morning Orally Once a day; Duration: 30 days 08/11/2024 Active Pravastatin Sodium 80 MG TAKE 1 TABLET A T BEDTIME; Duration: 90 Active Potassium Chloride ER 10 MEQ TAKE 1 TABLET EVERY DAY; Duration: 90 Active Levothyroxine Sodium 75 MCG 1 tab(s) ora lly once a day; Duration: 90 days Active Losartan Potassium-HCTZ 100-12.5 MG TAKE 1 TABLET EVERY DAY; Duration: 90 Active Alendronate Sodium 70 MG 1 tab(s) orally once a week; Duration: 84 Active Calcium 600 + Minerals 600-200 MG-UNIT 1 tab(s) orally once daily Active ICaps Active Multivitamin - 1 tab(s) orally once a day; Duration: 30 day(s) Active Fiber Choice 3 CAPS P.O. Q DAY Active Co Q10 100MG 1 TAB ORAL QD 03/28/2012 Ac tive Aspirin Adult Low Dose 81 MG orally only one aa day TAKES 2 DAILY Active Furosemide 20 MG 1 tab(s) orally as needed prn 10/06/2015 Active Problems Problem Type SNOMED Code ICD Code Onset Dates Problem Status W/U Status Risk Notes Problem Osteoporosis (52694624) Osteoporosis, unspecified (M81.0) Active confirmed Vital Signs Blood pressure systolic 174 mm Hg 08/12/19 25 Blood pressure diastolic 62 mm Hg 025 Heart Rate 58 /min 08/11/2024 Height 63 in 08/11/2024 Weight 131.2 lbs 08/11/2024 BMI 23.24 kg/m2 08/11/2024 Encounters Encounter Location Date Provider Diagnosis [facility] [address] [place], [place] [id number] 08/11/2024 Reg Fonseca Essential hypertensi on I10 ; Acquired hypothyroidism E03.9 ; Renal insufficiency N28.9 ; Aortic valve insufficiency, unspecified etiology I35.1 ; Osteoporosis M81.0 ; BMI 23.0-23.9, adult Z68.23 and Osteoporosis, unspecified M81.0 Assessments Encounter Date Diagnosis (ICD Code) Assessment Notes Treatment Notes Treatment Clinical Notes Section Notes 08/11/2024 Essential hypertension (ICD-10 - I10) 08/11/2024 Acquired hypothyroidism (ICD-10 - E03.9) 08/11/2024 Renal insufficiency (ICD-10 - N28.9) 08/11/2024 Aortic valve insufficiency, unspecified etiology (ICD-10 - I35.1) 08/11/2024 Osteoporosis (ICD-10 - M81.0) 08/11/2024 BMI 23.0-23.9, adult (ICD-10 - Z68.23) 08/11/2024 Osteoporosis, unspecified (ICD-10 - M81.0) Plan Of Treatment Medication Medication Name Sig Start Date Stop Date Notes hydroCHLOROthiazide 12.5 MG 1 tablet in the morning Orally Once a day; Duration: 30 days 08/11/2024 Next Appt Details Follow Up: 6 Weeks, Reason: Provider Name:Reg Elias , 03/09/2025 09:45:00 AM, [address], [address] , [place], [place], [id number], Progress Notes * Beata MOLINAOB:[birth year] (79 yo F)Acc No.[id number]:08/11/2024 Progress Notes Patient: Lucia ALFARO Provider: Reg Fonseca M.D. :1945 A ge:78 Y S ex:Female Date:08/11/2024 Address:[address] [place] [address], [id number] Subjective: * Chief Complaints: * 1 . 6 Month Check Up. 2. Needs labs & bone density screening. * HPI: C ardiology: The patient is here for a check up on Hypertnesion and Hypothyroidism. Pt states she is doing [...] 1 tab(s) orally once daily , Taking Alendronate Sodium 70 MG Tablet 1 tab(s) orally once a week , Taking Levothyroxine Sodium 75 MCG Tablet 1 tab(s) orally once a day , Taking Potassium Chloride ER 10 MEQ Tablet Extended Release TAKE 1 TABLET EVERY DAY , Taking Pravastatin Sodium 80 MG Tablet TAKE 1 TABLET AT BEDTIME , Taking Losartan Potassium-HCTZ 100-12.5 MG Tablet TAKE 1 TABLET EVERY DAY , Medication List reviewed and reconciled with the patient * Allergies: N .K.D.A. Objective: * Vitals: W t:131.2, Temp:98.2, BP:174/62, HR:58, Nurse:CATRACHO, Ht: 63, BMI:23.24. * Examination: G eneral Examination: General Appearance: N AD. H EENT: u nremarkable.?Oral cavity: n o lesions, mucosa moist and WNL, no erythema. N amber: s upple, no lymphadenopathy. C hest: n ormal shape and expansion. H eart: R SR, aortic murmur, diastolic murmur, no ectopics, 164/58. L ungs: c lear to auscultation. A bdomen: soft and nontender, no organomegaly or masses. N eurologic Exam: I ntact, gait normal. P eripheral pulses: n ormal. B ack: mild dorsal kyphosis. E xtremities: m inimal leg edema. Assessment: * Assessment: 1. E ssential hypertension - I10 (Primary) 2 . A cquired hypothyroidism - E03.9 3 . R enal insufficiency - N28.9 4 . A ortic valve insufficiency, unspecified etiology - I35.1 5 . O steoporosis - M81.0 6. B [place] 23.0-23.9, adult - Z68.23 7 . O steoporosis, unspecified - M81.0? Plan: * Treatment: Value Reference Range A /G Ratio 1.6 1.1-2.5 - * A lbumin 4.2 3.5-5.3 - g/dL * A lkaline Phosphatase 88 35-121 - IU/L * A LT (SGPT) 13 <5-47 - IU/L * A ST (SGOT) 22 <5-40 - IU/L * B ilirubin, Total 0.9 <0.2-1.2 - mg/dL * B UN 13 8-23 - mg/dL * C alcium 8.9 8.6-10.4 - mg/dL * C hloride 106 97-108 - mmol/L * C O2 26 22-32 - mmol/L * C reatinine 1.02 H 0.50-1.00 - mg/dL * G lucose 88 65-99 - mg/dL * P otassium 4.1 3.5-5.3 - mmol/L * S odium 141 135-145 - mmol/L * P rotein 6.9 6.0-8.3 - g/dL * e GFR by Creatinine 56 L >59 - mL/min/1.73m2 * Lesli Hancock 08/15/2024 10: 18:10 AM > See phone encounter 2.?Acquired hypothyroidism?LAB: P-TSH (Collection Date & Time - 08/11/2024 10:04 AM)?Normal* Value Reference Range T SH 4.44 0.43-5.25 - mU/L * Lesli Hancock 08/15/2024 10: 18:10 AM > See phone encounter * Procedure Codes: G 2211 Complex e/m visit add on, 3077F SYST BP = 140 MM HG6 IT, 3078F DIAST BP < 80 MM HG * Follow Up: 6 Weeks * Images: Billing Information: * Visit Code: 55177 Office Visit, Est Pt., Level 4. * Procedure Codes: G2211 Complex e/m visit add on. 3077F SYST BP = 140 MM HG6 IT. 3078F DIAST BP < 80 MM HG. * Electronic signature of Reg Fonseca MD on 03/09/2025 at 07:35 AM EST Sign off status: Pending * Provider: Reg Fonseca M.D. Date: 0 08/11/2024 Generated for Benii shayna/Chasity/eTransmitting on: 1 05/09/2024 07:35 AM EST History and Physical Notes * HPI (History of Present Illness) Category Sub-Category Detail Notes Category Not es Cardiology Short of Breath Chest Pain Palpitations Dizziness Examination Category Sub-Category Detail Notes Category Not es General Examination HEENT: unremarkable Heart: RSR, aortic murmur, diastolic murmur, no ectopics, 164/58 Lungs: clear to auscultatio n Abdomen: soft and nontender, no organomegaly or masses Extremities: minimal leg edema General Appearance: NAD Skin: Neurologic Exam: Intact, gait normal Neck: supple, no lymphaden opathy Oral cavity: no lesions, mucosa m oist and WNL, no erythema Peripheral pulses: normal Back: mild dorsal kyphosis Chest: normal shape and exp ansion
--- OUTSIDE RECORDS SUMMARY | 2024-09-29 10:00 | XMS_ITS ---
Author [facility] [address] [facility] [address] [place] [id number] Care Team Providers Care House Shorer Name Role Phone Reg Fonseca Primary Care Provider Allergies No Known Allergies REASON FOR VISIT 6 weeks Medications Medication SIG (Take, Route, Frequency, Duration) Notes Start Date End Date Status Multivitamin - 1 tab(s) orally once a day; Duration: 30 day(s) Active Calcium 600 + Minerals 600-200 MG-UNIT 1 tab(s) orally once daily Active ICaps Active Levothyroxine Sodium 75 MCG 1 tab(s) ora lly once a day; Duration: 90 days Active Alendronate Sodium 70 MG 1 tab(s) orally once a week; Duration: 84 Active Co Q10 100MG 1 TAB ORAL QD 03/28/2012 Ac tive Aspirin Adult Low Dose 81 MG orally only one day TAKES 2 DAILY Active Potassium Chloride ER 10 MEQ TAKE 1 TABLET EVERY DAY; Duration: 90 Active Fiber Choice 3 CAPS P.O. Q DAY Active Furosemide 20 MG 1 tab(s) orally as needed prn 10/06/2015 Active hydroCHLOROthiazide 12.5 MG 1 tablet in the morning Orally Once a day; Duration: 30 days 08/11/2024 Active Pravastatin Sodium 80 MG TAKE 1 TABLET A T BEDTIME; Duration: 90 Active Losartan Potassium-HCTZ 100-12.5 MG TAKE 1 TABLET EVERY DAY; Duration: 90 Active Vital Signs Blood pressure systolic 120 mm Hg 09/30/19 25 Blood pressure diastolic 62 mm Hg 025 Heart Rate 62 /min 09/29/2024 Height 63 in 09/29/2024 Weight 128.6 lbs 09/29/2024 BMI 22.78 kg/m2 09/29/2024 Encounters Encounter Location Date Provider Diagnosis Jeremías [address] [facility] 36 [facility] [address] [place] [id number] 09/29/2024 Reg Fonseca Essential hypertensi on I10 ; Aortic valve insufficiency, unspecified etiology I35.1 ; Acquired hypothyroidism E03.9 and BMI 22.0-22.9, adult Z68.22 Assessments Encounter Date Diagnosis (ICD Code) Assessment Notes Treatment Notes Treatment Clinical Notes Section Notes 09/29/2024 Essential hypertension (ICD-10 - I10) cont Rx 09/29/2024 Aortic valve insufficiency, unspecified etiology (ICD-10 - I35.1) 09/29/2024 Acquired hypothyroidism (ICD-10 - E03.9) 09/29/2024 BMI 22.0-22.9, adult (ICD-10 - Z68.22) Plan Of Treatment Treatment Notes Assessment Notes Essential hypertension cont Rx Next Appt Details Follow Up: 3 Months, Reason: Provider Name:Reg Elias er, 03/09/2025 09:45:00 AM, [address] [facility] 36 [facility], [address], [place], [phone], Progress Notes * MOIBeata RUGGIEROOB:[birth year] (79 yo F)Acc No.[id number]:09/29/2024 Progress Notes Patient: Lucia ALFARO Provider: Reg Fonseca M.D. :1945 A ge:78 Y S ex:Female Date:09/29/2024 Address:[address] [place] [address], [place], [phone] Subjective: * Chief Complaints: * 1 . 6 weeks. * HPI: C ardiology: The patient is here for a check up on Hypertension. Pt states she has been taking the Hctz as directed and denies any side effects. Pt states she does not check her BP at home. Denies : Chest Pain. D enies : [...] tab(s) orally once a day , Taking hydroCHLOROthiazide 12.5 MG Tablet 1 tablet in the morning Orally Once a day , Taking Losartan Potassium-HCTZ 100-12.5 MG Tablet TAKE 1 TABLET EVERY DAY , Taking Pravastatin Sodium 80 MG Tablet TAKE 1 TABLET AT BEDTIME , Taking Potassium Chloride ER 10 MEQ Tablet Extended Release TAKE 1 TABLET EVERY DAY , Medication List reviewed and reconciled with the patient * Allergies: N .K.D.A. Objective: * Vitals: W t: 128.6, Temp: 98.1, BP: 120/62, HR: 62, Nurse: CATRACHO, Ht: 63, BMI:22.78. * Examination: G eneral Examination: General Appearance: [...] dorsal kyphosis. E xtremities: m inimal leg edema.? Assessment: * Assessment: 1. E ssential hypertension - I10 (Primary) 2 . A ortic valve insufficiency, unspecified etiology - I35.1 3 . A cquired hypothyroidism - E03.9 ?4. B AL 22.0-22.9, adult - Z68.22 Plan: * Treatment: * Procedure Codes: G 2211 Complex e/m visit add on, 1036F TOBACCO NON-USER, G8783 BP SCR PRFRM RCMDD DEFIND SCR INTVL, G8752 MOST RECENT SYSTOLIC BP < 140MM HG, G8754 MOST RECENT DIASTOLIC BP < 90MM HG, G8420 BMI<30 AND >=22 CALC & DOCU * Follow Up: 3 Months * Images: Billing Information: * Visit Code: 76873 Office Visit, Est Pt., Level 3. * Procedure Codes: G2211 Complex e/m visit add on. 1036F TOBACCO NON-USER. G8783 BP SCR PRFRM RCMDD DEFIND SCR INTVL. G8752 MOST RECENT SYSTOLIC BP < 140MM HG. G8754 MOST RECENT DIASTOLIC BP < 90MM HG. G8420 BMI<30 AND >=22 CALC & DOCU. * Electronic signature of Reg Fonseca MD on 03/09/2025 at 07:36 AM EST Sign off status: Pending * Provider: Reg Fonseca M.D. Date: 09/29/2024 Generated for [employer] ng/Chasity/Penelopesmitting on: 1 05/09/2024 07:36 AM EST History and Physical Notes * [...]
--- OUTSIDE RECORDS SUMMARY | 2025-01-12 09:56 | XMS_ITS ---
Author Organization [facility] Address [address] [place] [address] [address] [place] [id number] Care Team Providers Care Patient Assistant Name Role Phone Reg Fonseca Primary Care Provider REASON FOR VISIT due dexa due 05/24/2025 Encounters Encounter Location Date Provider Diagnosis [facility] [address] [facility] [address] [place] [id number] 01/12/2025 Reg Fonseca Breast cancer screen ing Z12.31 and Encounter for screening for osteoporosis Z13.820 Assessments Encounter Date Diagnosis (ICD Code) Assessment Notes Treatment Notes Treatment Clinical Notes Section Notes 01/12/2025 Breast cancer screening (ICD-10 - Z12.31) 01/12/2025 Encounter for screening for osteoporosis (ICD-10 - Z13.820) Plan Of Treatment Pending Test Test Name Order Date Mammogram 01/12/2025 Next Appt Details Provider Name:Reg Elias er, 03/09/2025 09:45:00 AM, [address] [facility] [address] [facility], [address], [place], [id number], Progress Notes * Beata MOLINAOB:[birth year] (79 yo F)Acc No.[id number]:01/12/2025 Patient: Jessica EDWARDSLucia ROSE :1945 A ge:79 Y S ex:Female Address:[address] [place] [address], [place] [id number] Subjective: * Chief Complaints: * D ue dexa due 05/24/2025 * Medical History: * Surgical History: * Hospitalization/Major Diagno stic Procedure: * Medications: Objective: * Vitals: * Physical Examination: Assessment: * Assessment: 1. B reast cancer screening - Z12.31 (Primary) 2 . E ncounter for screening for osteoporosis - Z13.820 Plan: * Treatment: 2.?Encounter for screening for osteoporosis?Imaging: Bone density* Janna Ribeiro 01/16/2025 02:3 9:28 PM EDT >sent to Larisa for referral to [facility] along with Mammo to be scheduled after 02/02 * Procedure Codes: * true * Date: Generated for Wily corral/Chasity/Emerson on: 05/09/2024 07:36 AM EST
--- OUTSIDE RECORDS SUMMARY | 2025-02-04 05:00 | XMS_ITS ---
Author Organization [facility] Address [address] [facility] [address] [place] [id number] Care Team Providers Care Supervisor Agricultural Education Name Role Phone Reg Fonseca Primary Care Provider [phone] Breann Hawkins Unavailable [phone] Allergies No Known Allergies REASON FOR VISIT 4 weeks Medications Medication SIG (Take, Route, Frequency, Duration) Notes Start Date End Date Status Alendronate Sodium 70 MG 1 tablet orally once a week; Duration: 84 days Active Medrol 4 MG as directed Orally 02/04/2025 Active hydroCHLOROthiazide 12.5 MG TAKE 1 TABLE T EVERY MORNING; Duration: 90 Active Levothyroxine Sodium 75 MCG TAKE 1 TABLE T EVERY DAY; Duration: 90 Active Calcium 600 + Minerals 600-200 MG-UNIT 1 tab(s) orally once daily Active ICaps Active Losartan Potassium-HCTZ 100-12.5 MG 1 tablet Orally Once a day; Duration: 90 days Active Potassium Chloride ER 10 MEQ 1 tablet with food Orally daily; Duration: 90 days Active Pravastatin Sodium 80 MG TAKE 1 TABLET A T BEDTIME; Duration: 90 Active Multivitamin - 1 tab(s) orally once a day; Duration: 30 day(s) Active Fiber Choice 3 CAPS P.O. Q DAY Active Co Q10 100MG 1 TAB ORAL QD 03/28/2012 Ac tive Aspirin Adult Low Dose 81 MG orally only one aa day TAKES 2 DAILY Active Furosemide 20 MG 1 tab(s) orally as needed prn 10/06/2015 Active Meloxicam 7.5 MG 1 tablet Orally Once a day, prn; Duration: 30 days 02/04/2025 Active Immunizations Vaccine Route Administration Date Status Comme nts Fluzone High Dose (65yr and older) IM Intramuscular 02/04/2025 Administered Problems Problem Type SNOMED Code ICD Code Onset Dates Problem Status W/U Status Risk Notes Problem Sciatic nerve lesion ([id number]) Piriformis syndrome of left side (G57.02) Active confirmed Vital Signs Blood pressure systolic 122 mm Hg 02/05/20 25 Blood pressure diastolic 70 mm Hg 025 Heart Rate 58 /min 02/04/2025 Height 63 in 02/04/2025 Weight 125.6 lbs 02/04/2025 BMI 22.25 kg/m2 02/04/2025 Encounters Encounter Location Date Provider Diagnosis [facility] [facility] 36 [facility] [address] [place] [id number] 02/04/2025 Breann [place] Piriformis syndrome of left side G57.02 ; Trochanteric bursitis, left hip M70.62 ; Encounter for immunization Z23 and BMI 22.0-22.9, adult Z68.22 Assessments Encounter Date Diagnosis (ICD Code) Assessment Notes Treatment Notes Treatment Clinical Notes Section Notes 02/04/2025 Piriformis syndrome of left side (ICD-10 - G57.02) 02/04/2025 Trochanteric bursitis, left hip (ICD-10 - M70.62) 02/04/2025 Encounter for immunization (ICD-10 - Z23) 02/04/2025 BMI 22.0-22.9, adult (ICD-10 - Z68.22) Plan Of Treatment Medication Medication Name Sig Start Date Stop Date Notes Medrol 4 MG as directed Orally 02/04/2025 Meloxicam 7.5 MG 1 tablet Orally Once a day, prn; Duration: 30 days 02/04/2025 Next Appt Details Follow Up: via phone to repo rt progress, Reason: Provider Name:Reg Elias er, 03/09/2025 09:45:00 AM, [address] [place] [address] [facility], [address], [place], [phone], Progress Notes * Beata MOLINAOB:[birth year] (79 yo F)Acc No.[id number]:02/04/2025 Progress Notes Patient: Jessica Lucia ALMEIDA Provider: SANDRA Orozco :1945 A ge:79 Y S ex:Female Date:02/04/2025 Address:[address] [place] [address] [place], [place], [id number] Pcp:Reg Fonseca Subjective: * Chief Complaints: * 1 . 4 weeks. * HPI: H ip/Thigh: 79 year old female presents with c/o hip pain P t here 4 week checkup. Pt states her right hip is no longer hurting but she is having left hip pain now that radiates down her left leg. * ROS: D ERMATOLOGY: no R davi. n o H leslie. G ASTROENTEROLOGY: no N ausea. n o V omiting. n o D iarrhea.? U ROLOGY: no B lood in urine. n o F requent urination. ? * Medical History: H yperlipidemia, Bicuspid aortic [...] Chloride ER 10 MEQ Tablet Extended Release 1 tablet with food Orally daily , Taking Losartan Potassium-HCTZ 100-12.5 MG Tablet 1 tablet Orally Once a day , Taking Levothyroxine Sodium 75 MCG Tablet TAKE 1 TABLET EVERY DAY , Taking hydroCHLOROthiazide 12.5 MG Tablet TAKE 1 TABLET EVERY MORNING , Taking Alendronate Sodium 70 MG Tablet 1 tablet orally once a week , Discontinued methylPREDNISolone 4 MG Tablet Therapy Pack as directed Orally , Medication List reviewed and reconciled with the patient * Allergies: N .K.D.A. Objective: * Vitals: W t: 125.6, Temp: 97.5, BP: 122/70, HR: 58, Nurse: pe, Ht: 63, BMI:22.25. * Examination: G eneral Examination: General Appearance: N AD. C hest: n ormal shape and expansion. H eart: R SR. L ungs: c lear to auscultation. B ack: n o vertebral tenderness, there is ttp along the left SI joint, left piriformis muscle, and left trochanteric bursa, there is pain with the figure 4 test but SLR is normal. Assessment: * Assessment: 1. P iriformis syndrome of left side - G57.02 (Primary) 2 . T rochanteric bursitis, left hip - M70.62 3 . E ncounter for immunization - Z23 ?4. B FL 22.0-22.9, adult - Z68.22 Plan: * Treatment: * Immunizations: Fluzone High Dose (65yr and older) : 0.5 mL (Route: Intramuscular) given by MASON Goddard , City Planner on Left Deltoid (Encounter for immunization) * Procedure Codes: G 2211 Complex e/m visit add on, 1036F TOBACCO NON-USER, G8420 BMI<30 AND >=22 CALC & DOCU, G8783 BP SCR PRFRM RCMDD DEFIND SCR INTVL, G8752 MOST RECENT SYSTOLIC BP < 140MM HG, G8754 MOST RECENT DIASTOLIC BP < 90MM HG, 3074F SYST BP LT 130 MM HG, 3078F DIAST BP < 80 MM HG * Follow Up: v ia phone to report progress * Images: Billing Information: * Visit Code: 85749 Office Visit, Est Pt., Level 3. * Procedure Codes: G2211 Complex e/m visit add on. 1036F TOBACCO NON-USER. G8420 BMI<30 AND >=22 CALC & DOCU. G8783 BP SCR PRFRM RCMDD DEFIND SCR INTVL. G8752 MOST RECENT SYSTOLIC BP < 140MM HG. G8754 MOST RECENT DIASTOLIC BP < 90MM HG. 3074F SYST BP LT 130 MM HG. 3078F DIAST BP < 80 MM HG. * Electronic signature of SANDRA Cobb on 03/09/2025 at 07:36 AM EST Sign off status: Pending * Provider: SANDRA Orozco Date: Generated for Wily corral/Chasity/Emerson on: 05/09/2024 07:36 AM EST History and Physical Notes * HPI (History of Present Illness) Category Sub-Category Detail Notes Category Not es Hip/Thigh hip pain Pt here 4 week c heckup. Pt states her right hip is no longer hurting but she is having left hip pain now that radiates down her left leg Examination Category Sub-Category Detail Notes Category Not es General Examination Heart: RSR Lungs: clear to auscultatio n General Appearance: NAD Back: no vertebral tendern ess, there is ttp along the left SI joint, left piriformis muscle, and left trochanteric bursa, there is pain with the figure 4 test but SLR is normal Chest: normal shape and exp ansion
--- OUTSIDE RECORDS SUMMARY | 2025-03-02 06:30 | XMS_ITS ---
[facility] [address] [facility] [address] [place] [id number] Care Team Providers Care Market Risk Specialist Name Role Phone Reg Fonseca Primary Care Provider Allergies No Known Allergies REASON FOR VISIT hip pain Medications Medication SIG (Take, Route, Frequency, Duration) Notes Start Date End Date Status Pravastatin Sodium 80 MG 1 tablet at bedtime Orally Once a day; Duration: 90 days Active traMADol HCl 50 MG 1 tablet as needed Orally three times a day as needed; Duration: 10 days 03/02/2025 Active predniSONE 10 MG 1 tablet with food or milk Orally Once a day; Duration: 30 day(s) 03/02/2025 Active Potassium Chloride ER 10 MEQ 1 tablet with food Orally daily; Duration: 90 days Active Losartan Potassium-HCTZ 100-12.5 MG 1 tablet Orally Once a day; Duration: 90 days Active Levothyroxine Sodium 75 MCG TAKE 1 TABLET EVERY DAY; Duration: 90 Active Meloxicam 7.5 MG 1 tablet Orally Once a day, prn; Duration: 30 days 02/04/2025 Active Medrol 4 MG as directed Orally 02/04/2025 Not-Taking Alendronate Sodium 70 MG 1 tablet orally once a week; Duration: 84 days Not-Taking hydroCHLOROthiazide 12.5 MG TAKE 1 TABLET EVERY MORNING; Duration: 90 Active Calcium 600 + Minerals [...] one aa day TAKES 2 DAILY Active Vital Signs Blood pressure systolic 118 mm Hg 03/02/20 25 Blood pressure diastolic 76 mm Hg 025 Heart Rate 65 /min 03/02/2025 Height 63 in 03/02/2025 Weight 126.4 lbs 03/02/2025 BMI 22.39 kg/m2 03/02/2025 Encounters Encounter Location Date Provider Diagnosis [facility] [address] [facility] 36 [facility] [address] [place] [id number] 03/02/2025 Reg Fonseca Leg pain, left M79.605 Assessments Encounter Date Diagnosis (ICD Code) Assessment Notes Treatment Notes Treatment Clinical Notes Section Notes 03/02/2025 Leg pain, left (ICD-10 - M79.605) recommend ABDON wrap to the left upper thigh Plan Of Treatment Medication Medication Name Sig Start Date Stop Date Notes traMADol HCl 50 MG 1 tablet as needed O rally three times a day as needed; Duration: 10 days 03/02/2025 predniSONE 10 MG 1 tablet with food o r milk Orally Once a day; Duration: 30 day(s) 03/02/2025 Treatment Notes Assessment Notes Leg pain, left recommend ABDON wrap t o the left upper thigh Pending Test Test Name Order Date X ray : Hip, left 03/02/2025 Next Appt Details Follow Up: 1 Week, Reason: Provider Name:Reg Elias er, 03/09/2025 09:45:00 AM, [address] [facility] [address] [facility], [address], [place], [phone], Progress Notes * Beata MOLINAOB:[birth year] (79 yo F)Acc No.[id number]:03/02/2025 Progress Notes Patient: Lucia ALFARO Provider: Reg Fonseca M.D. :1945 A ge:79 Y S ex:Female Date:03/02/2025 Address:[address] [place] [address], [place], [id number] Subjective: * Chief Complaints: * 1 . Hip pain. * HPI: H ip/Thigh: 79 year old female presents with c/o hip pain P t sts he is having trouble with her lt hip, but sts for a while it was her rt hip. Pt sts at times it does lock up and sts the pain goes all the way down to her lt knee as well. Pt sts this has been ongoing for a while now. H PI: c/o Patient is here today for P t sts a couple of weeks ago she had an episode where she passed out and sts the EMT or doctors were unable to figure what caused this. Pt sts her BP, BS and everything was normal. Pt sts she has been better since then. * ROS: C ONSTITUTIONAL: Positive for A mane physician seen since last visit?, NO?Change in medication since last visit?, NO A re you taking antibiotics?, NO A re you taking steroids? NO. D ERMATOLOGY: no R davi. n o H leslie. G ASTROENTEROLOGY: no N ausea. n o V omiting. n o D iarrhea.? U ROLOGY: no B lood in urine. n o F requent urination. ? * Medical History: H yperlipidemia, Bicuspid aortic valve, aortic insufficiency, Basal cell CA left shoulder 07/2011, Flu shot 2022, Shingrix x2 2022/2023. * Surgical History: t ubal 1994, cataract [...] TAKE 1 TABLET EVERY MORNING , Taking Meloxicam 7.5 MG Tablet 1 tablet Orally Once a day, prn , Taking Losartan Potassium-HCTZ 100-12.5 MG Tablet 1 tablet Orally Once a day , Taking Potassium Chloride ER 10 MEQ Tablet Extended Release 1 tablet with food Orally daily , Taking Pravastatin Sodium 80 MG Tablet 1 tablet at bedtime Orally Once a day , Not- Taking Alendronate Sodium 70 MG Tablet 1 tablet orally once a week , Not-Taking Medrol 4 MG Tablet Therapy Pack as directed Orally , Medication List reviewed and reconciled with the patient * Allergies: N .K.D.A. Objective: * Vitals: W t: 126.4, Temp: 97.9, BP: 118/76, HR: 65, Nurse: , Ht: 63, BMI:22.39. * Examination: G eneral Examination: General Appearance: [...] pulses: n ormal. B ack: mild dorsal kyphosis, t samuel SI joint right. E xtremities: m inimal leg edema. Assessment: * Assessment: 1. L eg pain, left - M79.605 (Primary) Plan: * Treatment: Notes: recommend ABDON wrap to the left upper thigh?? * Follow Up: 1 Week * Images: Billing Information: * Visit Code: 43056 Office Visit, Est Pt., Level 4. * Procedure Codes: * Electronic signature of Reg Fonseca MD on 03/09/2025 at 07:35 AM EST Sign off status: Pending * Provider: Reg Fonseca M.D. Date: 05/02/2024 Generated for Wily corral/Chasity/Penelopesmitting on: 05/09/2024 07:35 AM EST History and Physical Notes * HPI (History of Present Illness) Category Sub-Category Detail Notes Category Not es Hip/Thigh hip pain Pt sts he is hav ing trouble with her lt hip, but sts for a while it was her rt hip. Pt sts at times it does lock up and sts the pain goes all the way down to her lt knee as well. Pt sts this has been ongoing for a while now HPI Patient is here today for Pt sts a couple of weeks ago she had an episode where she passed out and sts the EMT or doctors were unable to figure what caused this. Pt sts her BP, BS and everything was normal. Pt sts she has been better since then Examination Category Sub-Category Detail Notes Category Not [...] Peripheral pulses: normal Back: mild dorsal kyphosis , tender SI joint right Chest: normal shape and exp ansion
--- NOTE | 2025-03-09 07:35 | MM_ITS ---
PROCEDURE INFORMATION: Exam: MG Bilateral Screening 3D Mammography Exam date and time: 03/09/2025 8:03 AM Age: 79 years old Clinical indication: Screening examination TECHNIQUE: Imaging protocol: Bilateral Screening tomosynthesis and 2D mammography including computer-aided detection (CAD) when performed. COMPARISON: 1. MG MM DIG SCREENING MAMM BI W/CAD 02/19/2024 8:44 AM 2. MG MM DIG SCREENING MAMM BI W/CAD 06/14/2023 9:38 AM FINDINGS: MAMMOGRAPHY: Breast composition: The breasts are heterogeneously dense, which may obscure small masses. Mass: None. Architectural distortion: None. Calcifications: No suspicious calcifications. Asymmetric density: None. Skin thickening: None. Axillary adenopathy: None. IMPRESSION: No mammographic evidence of malignancy. Annual screening is recommended unless otherwise clinically indicated. ASSESSMENT: BI-RADS Category 1: Negative.
--- OUTSIDE RECORDS SUMMARY | 2025-03-09 07:36 | XMS_ITS | Patient Health Record ---
Author Organization [facility] Address [address] [facility] [address] [place] [id number] Care Team Providers Care Laboratory Courier Name Role Phone Reg Fonseca Primary Care Provider Breann Hawkins Unavailable [phone] Allergies No Known Allergies Results Component Value Reference Range Notes P-Comprehensive Metabolic Pa venessa (CMP) Reviewed date:08/15/2024 10:18:17 AM Interpretation:creat 1.02, eGFR 56 Performing Lab: Notes/Report: Test performed by [facility] [address] [place] [address] , [address], [place] [address] Kranthi Simeon MD, Cause Analyst CLIA: [id number] Sodium 141 135-145 mmol/L Potassium 4.1 3.5-5.3 [...] Interpretation:Normal Performing Lab: Notes/Report: Test performed by [facility] [address] [place] [address] , [address], [place] [address] Kranthi Simeon MD, Cause Analyst CLIA: [id number] TSH 4.44 0.43-5.25 mU/L P-Basic Metabolic Panel (BMP ) Reviewed date:01/06/2025 11:21:57 AM Interpretation:Creat 1.14, eGFR 49 Performing Lab: Notes/Report: CLIA: [id number] Kranthi Simeon MD, Cause Analyst [address] [place] [address] [address], [place] [address] Test performed by [facility] Sodium 141 135-145 mmol/L Potassium 4.6 3.5-5.3 mmol/L Chloride 104 97-108 mmol/L CO2 26 20-32 mmol/L Glucose 90 65-99 mg/dL BUN 18 8-23 mg/dL Creatinine 1.14 0.50-1.00 mg/dL Calcium 9.9 8.6-10.4 mg/dL eGFR by Creatinine 49 >59 mL/min/1.73m2 X ray : Spine, lumbosacral Reviewed date:01/06/2025 11:21:57 AM Interpretation: Performing Lab: Notes/Report: Medications Medication SIG (Take, Route, Frequency, Duration) Notes Start Date End Date Status Pravastatin Sodium 80 MG 1 tablet at bedtime Orally Once a day; Duration: 90 days Active traMADol HCl 50 MG 1 tablet as needed Orally three times a day as needed; Duration: 10 days 03/02/2025 Active Levothyroxine Sodium 75 MCG TAKE 1 TABLET EVERY DAY; Duration: 90 Active predniSONE 10 MG 1 tablet with food or milk Orally Once a day; Duration: 30 day(s) 03/02/2025 Active Calcium 600 + Minerals 600-200 MG-UNIT 1 tab(s) orally once daily Active ICaps Active Multivitamin - 1 tab(s) orally once a day; Duration: 30 day(s) Active Furosemide 20 MG 1 tab(s) orally as needed prn 10/06/2015 Active Meloxicam 7.5 MG 1 tablet Orally Once a day, prn; Duration: 30 days 02/04/2025 Active Medrol 4 MG as directed Orally 02/04/2025 Not-Taking Alendronate Sodium 70 MG 1 tablet orally once a week; Duration: 84 days Not-Taking hydroCHLOROthiazide 12.5 MG TAKE 1 TABLET EVERY MORNING; Duration: 90 Active Fiber Choice 3 CAPS P.O. Q DAY Active Co Q10 100MG 1 TAB ORAL QD 03/28/2012 Ac tive Potassium Chloride ER 10 MEQ 1 tablet with food Orally daily; Duration: 90 days Active Aspirin Adult Low Dose 81 MG orally only one aa day TAKES 2 DAILY Active Losartan Potassium-HCTZ 100-12.5 MG 1 tablet Orally Once a day; Duration: 90 days Active Immunizations Vaccine Route Administration Date Status Comme nts mPiaipyr-ywnumumtg-qdqdaab e pts. IM Intramuscular 03/28/2012 Administered xFluzone [...] and older) IM Intramuscular 02/11/2024 Administered Fluzone High Dose (65yr and older) IM Intramuscular 02/04/2025 Administered COVID 19 Moderna Unknown 01/20/2021 Administered Problems Problem Type SNOMED Code ICD Code Onset Dates Problem Status W/U Status Risk Notes Problem Essential hypertension (65245225) Essential hypertension (I10) Active confirmed Problem Sciatic nerve lesion (621670573) Piriformis syndrome of left side (G57.02) Active confirmed Problem Actinic keratosis (275212) Actinic keratosis (L57.0) Active confirmed Problem Acquired hallux valgus (68840725) Hallux valgus (acquired), right foot (M20.11) Active confirmed Problem Acquired hypothyroidism (358769244) Acquired hypothyroidism (E03.9) Active confirmed Problem Renal insufficiency (545033759) Renal insufficiency (N28.9) Active confirmed Problem Osteoporosis (05881767) Osteoporosis (M81.0) Active confirmed Problem Hearing loss (51503518) Hearing deficit, bilateral (H91.93) Active confirmed Problem Aortic valve disorder (7532469) Aortic valve insufficiency, unspecified etiology (I35.1) Active confirmed Problem Dyslipidemia (504050530) Dyslipidemia (E78.5) Active confirmed Problem Pain in right sacroiliac joint (97349335348659196) Pain of right sacroiliac joint (M53.3) Active confirmed Problem Temporomandibular joint disorder (89930480) TMJ (temporomandibula r joint disorder) (M26.609) Active confirmed Problem Osteoporosis (20037334) Osteoporosis, unspecified (M81.0) Active confirmed Problem Fibrocystic breast changes (58413845) Fibrocystic breast disease (FCBD), unspecified laterality (N60.19) Active confirmed Problem Cervical arthritis (disorder) (389801654) 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) Active confirmed Vital Signs Heart Rate 65 /min 03/02/2025 Blood pressure diastolic 76 mm Hg 03/02/2025 Height 63 in 03/02/2025 Blood pressure systolic 118 mm Hg 03/02/2025 Weight 126.4 lbs 03/02/2025 BMI 22.39 kg/m2 03/02/2025 Encounters Encounter Location Date Provider Diagnosis [facility] [address] [facility] [address] [place] [id number] 08/11/2024 Reg Fonseca Essential hypertensi on I10 ; Acquired hypothyroidism E03.9 ; Renal insufficiency N28.9 ; Aortic valve insufficiency, unspecified etiology I35.1 ; Osteoporosis M81.0 ; BMI 23.0-23.9, adult Z68.23 and Osteoporosis, unspecified M81.0 [facility] [address] [facility] [address] [place] [id number] 09/29/2024 Reg Fonseca Essential hypertensi on I10 ; Aortic valve insufficiency, unspecified etiology I35.1 ; Acquired hypothyroidism E03.9 and BMI 22.0-22.9, adult Z68.22 [facility] [address] [place] [id number] 02/04/2025 Breann [place]dy Piriformis syndrome of left side G57.02 ; Trochanteric bursitis, left hip M70.62 ; Encounter for immunization Z23 and BMI 22.0-22.9, adult Z68.22 [facility] [address] [place] [id number] 03/02/2025 Reg Fonseca Leg pain, left M79.6 05 [facility] [address] [place] [id number] 01/05/2025 Reg Fonseca Aortic valve insufficiency, unspecified etiology I35.1 ; Essential hypertension I10 ; Acquired hypothyroidism E03.9 ; Renal insufficiency N28.9 ; Pain of right sacroiliac joint M53.3 ; Dyslipidemia E78.5 and BMI 22.0-22.9, adult Z68.22 [facility] [address] [place] [id number] 08/15/2024 [facility] [address] [place] [id number] 01/06/2025 [facility] [address] [place] [id number] 01/12/2025 Reg Fonseca Breast cancer screen ing [...] valve insufficiency, unspecified etiology (ICD-10 - I35.1) 01/12/2025 Encounter for screening for osteoporosis (ICD-10 - Z13.820) 01/12/2025 Breast cancer screening (ICD-10 - Z12.31) 02/04/2025 Piriformis syndrome of left side (ICD-10 - G57.02) 02/04/2025 Trochanteric bursitis, left hip (ICD-10 - M70.62) 03/02/2025 Leg pain, left (ICD-10 - M79.605) recommend ABDON wrap to the left upper thigh 02/04/2025 Encounter for immunization (ICD-10 - Z23) 01/05/2025 Acquired hypothyroidism (ICD-10 - E03.9) 09/29/2024 Acquired hypothyroidism (ICD-10 - E03.9) 08/11/2024 Renal insufficiency (ICD-10 - N28.9) 08/11/2024 Aortic valve insufficiency, unspecified etiology (ICD-10 - I35.1) 09/29/2024 BMI 22.0-22.9, adult (ICD-10 - Z68.22) 01/05/2025 Renal insufficiency (ICD-10 - N28.9) 02/04/2025 BMI 22.0-22.9, adult (ICD-10 - Z68.22) 01/05/2025 Pain of right sacroiliac joint (ICD-10 - M53.3) 08/11/2024 Osteoporosis (ICD-10 - M81.0) 08/11/2024 BMI 23.0-23.9, adult (ICD-10 - Z68.23) 01/05/2025 Dyslipidemia (ICD-10 - E78.5) 01/05/2025 BMI 22.0-22.9, adult (ICD-10 - Z68.22) 08/11/2024 Osteoporosis, unspecified (ICD-10 - M81.0) Plan Of Treatment Pending Test Test Name Order Date X ray : Hip, left 03/02/2025 Bone density 01/16/2025 Mammogram 01/12/2025 Next Appt Details Provider Name:Reg Elias er, 03/09/2025 09:45:00 AM, [address], [address], [place], [id number], Insurance Providers Payer Name Payer Address Payer Phone Subscriber Number Group Number Insured Name Patient Relationship to Insured Coverage Start Date Coverage End Date [employer] (MEDICAR E) [address] [address] [place] [address] [phone] [id number] Lucia Velasco Self - patient is the insured Medical (General) History Medical History History ICD Code hyperlipidemia bicuspid aortic valve, aortic insufficie ncy Basal cell CA left shoulder 07/2011 Flu shot 2022 Shingrix x2 Surgical History Surgery Date(Month/Year) tubal 1994 cataract (left) 06/2010
--- NOTE | 2025-03-09 07:41 | XR_ITS ---
FINAL REPORT CLINICAL HISTORY: left hip pain, no injury FINDINGS: LEFT HIP 3 views of the left hip are obtained. There is no acute fracture or dislocation. Visualized joint spaces are normally aligned. There are moderate degenerative changes. There is no acute soft tissue abnormality. IMPRESSION: No acute bony abnormality. Reviewed, Interpreted and Dictated by Augusto Mills MD Transcribed by Daria Rudolph Authenticated and . [facility]
--- NOTE | 2025-03-09 08:15 | XR_ITS ---
FINAL REPORT TECHNIQUE: Bone densitometry calculations of the lumbar spine and left hip were obtained. CLINICAL HISTORY: SCREENING FINDINGS: Using L1-4, the bone mineral density of the spine is 0.794 g/cm2, corresponding to T-score of -2.3. Using the left hip, the bone mineral density of the femoral neck is 0.625 g/cm2, corresponding to a T-score of -2.0. Using the right hip, the bone mineral density of the femoral neck is 0.665 g/cm2, corresponding to a T-score of -1.7. NOTE: T-score: Standard deviation compared with peak bone mass of young adult mean. *Following the recommendations of the International Society of Bone densitometry, classification of hip BMD is based on the lower of two T-scores; total hip or femoral neck. IMPRESSION: Diminished bone mineral density of the lumbar spine and both hips consistent with osteopenia. FRAX was not reported because patient is being treated for osteoporosis. Reviewed, Interpreted and Dictated by Augusto Mills MD Transcribed by Rosalind Mtz Authenticated and [facility]
== END 2025-03-09 23:59 | disposition home or self-care (01) ==
LOC: RAD 07:34
PROVIDERS: PCP Family Medicine; Visit Provider Family Medicine
DX: Z12.31 Encounter for screening mammogram for malignant neoplasm of breast (principal); M85.88 Other specified disorders of bone density and structure, other site; M85.851 Other specified disorders of bone density and structure, right thigh; M85.852 Other specified disorders of bone density and structure, left thigh; M79.605 Pain in left leg; R92.333 Mammographic heterogeneous density, bilateral breasts; Z13.820 Encounter for screening for osteoporosis; Z78.0 Asymptomatic menopausal state
CPT/HCPCS: 73502; 77063; 77067; 77080

== ENCOUNTER 2025-03-25 08:45 | Outpatient (RCR) | payer MEDICARE, SELFPAY ==
--- NOTE | 2025-03-25 11:31 | HMH.PTOPEV ---
PT Evaluation Rehab PT Outpatient Evaluation Start: 03/25/25 09:11 Freq: Status: Active Protocol: Document 03/25/25 09:45 PDESEROUX (Rec: 03/25/25 11:31 [email or web address] [id number]) E-signed By John Paul Galaviz, PT Outpatient Therapy Subjective History Subjective History Pt. is a 79 year old female who presents to [facility] Outpatient Physical Therapy Services in [place] for the PT outpatient initial evaluation this date() w/ c/o acute on chronic and constant L LE hip P! , TTP, and locking up of insidious onset 1 month ago. Pt. c/o initial onset of hip P! 6 to 8 months ago, however, symptoms were on the R-sided hip region. Pt. reports she was prescribed a Prednisone pack which provided complete symptom relief while I took it, however, once she discontinued the medication symptoms came back, but in the L side of the hip 1 month ago. Pt . reports symptoms will refer inferiorly into the lateral L LE just below the knee. Pt. reports at times the L lateral hip will lock up w/ too much ambulation of certain movements. Most recent diagnostic imaging(radiograph) didn't look all that bad per pt. report. Pt. denies having any injections for current complaint of P!. Pt. reports her referring Physician is also referring pt. to the [facility] for c/o L hip P! for an injection per pt. report. Pt. reports my Doctor says I have a few things going on including bursitis and osteoarthritis per pt . report. Pt. denies paresthesia in the L LE. Pt. does vocalize having a history of lumbar spine P! that worsens the longer she stands and perform activity including washing dishes or running the sweeper. Pt. reports she was seeing her Chiropractor for the L hip P ! which included some stretches, exercises, and distraction. Pt. reports they felt good while I did them, but wouldn't last. Pt. reports discontinuing the Chiropractic services secondary to having no overall improvements. Pt. RTMD in 2 wks. Current medication list includes Losartan, Pravastatin, Levothyroxine, Vit . supplements, Meloxicam. PMH includes Hypertension, Hyperlipidemia, and Cardiac Murmur. New diagnosis of No cancer in past 12 months? Chief Complaint Pain,Spasms,Stiff,Catches/Locks,Gives out/Unstable, Weakness,Other Symptom Type Ache,Throb,Sharp,Dull,Stabbing,Shooting Symptoms Relieved By Rest/Positioning,Ice,Prescription Meds Symptoms Aggravated Standing,Bending/Stooping,Physical Activity,Walking, By Lifting Prior Functional None Limitations Current Functional Housework,Dressing,Standing,Recreation Activity,Walking Limitations ,Bending/Stooping Symptom Description Activity Dependent Level of pain today 0 (0-10) Pain scale - at its 0 best (0-10) Pain scale - at its 6 worst (0-10) Lumbopelvic Eval Palapation tenderness bilateral lumbar spinal Yes: L1-L5 tenderness buttock tenderness Yes Lumbar/Sacral Tenderness Palpation Findings Lumbar/Sacral grade 4 +TTP to vocalized increase L-sided lateral hip Palpation Overall P! w/ lumbar spine Comment Accessory Movement L-spine Vertebrae Central P/A [place],Right P/A [place],Left P/A [place] Accessory Movements that Elicit Symptoms L2 bilateral L3 bilateral L4 bilateral L5 bilateral S1 bilateral Range of Motion Lumbar Spine Active 41 Flexion Range of Motion (degrees) Lumbar Spine Active 21 Extension Range of Motion (degrees) Left Lumbar Spine 17 Lateral Flexion Active Range of Motion (degrees) Right Lumbar Spine 19 Lateral Flexion Active Range of Motion (degrees) Lumbar Spine ROM Soft Tissue Tightness,Muscle Tone,Pain Limitations DTR Rt Patellar 2+ Lt Patellar 2+ Rt Gastroc/Soleus 0 Lt Gastroc/Soleus 0 Altered Sensation Left Comment pt. vocalized symmetrical light touch sensation in B LEs grossly Special Tests Lumbar Spine Screen Positive Hip Scouring ( Positive Left Quadrant) Test Hip [place] (LAST) Positive Left Test Hip Piriformis Test Positive Left Sciatic Nerve Positive Left Tension Test Lumbar Long [place] Positive Distraction Test/ Manual Traction Hip/Knee Eval Gait Observation General Gait Pattern No Deviations/Normal Observation Assistive Device Assistive Devices None / NA Palpation Tenderness left Hip Palpation Tenderness Findings Hip Palpation greater trochanter, IT band, piriformis/glute med./ Overall Comment glute min. mms. grade 4 MMT Hip Flexion Strength 4+ Good+ Grade Hip Abduction 4 Good Strength Grade Hip Adduction 4 Good Strength Grade Hip Extension 3+ Fair+ Strength Grade Gluteus Marcus 3+ Fair+ Strength Grade Hip External 3+ Fair+ Rotation Strength Grade Hip Internal 3+ Fair+ Rotation Strength Grade Knee Extension 4- Good- Strength Grade Knee Flexion 4- Good- Strength Grade Hip Extensors Muscle Severe Hypertonicity Tone Description Hip Flexors Muscle Severe Hypertonicity Tone Description Special Tests Hip Nancy Test Positive Left Lower Extremity Functional Index Activities Today, do you or would you have any difficulty at all with: a.Any of your usual A little bit of difficulty work, housework or school activities b. Your usual No difficulty hobbies, recreational or sporting activities c. Getting into or Moderate difficulty out of the bath d. Walking between Quite a bit of difficulty rooms e. Putting on your Quite a bit of difficulty shoes or socks f. Squatting Quite a bit of difficulty g. Lifting an object Quite a bit of difficulty , like a bag of groceries from the floor h. Performing light Moderate difficulty activities around your home i. Performing heavy Quite a bit of difficulty activities around your home j. Getting into or A little bit of difficulty out of a car k. Walking 2 blocks No difficulty l. Walking a mile No difficulty m. Going up or down Moderate difficulty 10 stairs (about 1 flight of stairs) n. Standing for 1 Moderate difficulty hour o. Sitting for 1 A little bit of difficulty hour p. Running on even Extreme difficulty or unable to perform activity ground q. Running on uneven Extreme difficulty or unable to perform activity ground r. Making sharp Extreme difficulty or unable to perform activity turns while running fast s. Hopping Extreme difficulty or unable to perform activity t. Rolling over in A little bit of difficulty bed LEFI Score Lower Extremity 37 Functional Index Score Outpatient Therapy Assessment Impairments Problems/ Palpation Tenderness,Impaired Range of Motion,Impaired Impairmments Strength,Impaired Endurance,Impaired Transfers,Impaired Walking,Impaired Standing,Impaired Dressing,Impaired Household Care,Impaired Bending,Impaired Recreational Activities,Subjective C/O Pain,Impaired Self Care/Self Management Prognosis Rehab Potential Good Comment w/ HEP compliancy Clinical Impression Consistent with Yes Diagnosis Consistent with L hip P! Additional details: L trochanteric bursitis L-sided gluteus medius/minimus tendinitis L-sided lumbar radiculopathy PT Patient Goals PT Patient Goals PT Short Term STG#1.) Pt. will subjectively vocalize comparable L hip Patient Goals P! a 5/10 @ worse in 4 wks. for improved QOL. STG#2.) Pt. will demonstrate compliancy w/ initial HEP in 4 wks. for improved prognosis w/ Physical Therapy. STG#3.) Pt. will exhibit grade 2 + TTP to L lateral hip region in 4 wks. for improved QOL. PT Chcf Patient LTG#1.) Pt. will subjectively vocalize comparable L hip Goals P! a 2/10 @ worse in 6-8 wks. for improved QOL. LTG#2.) Pt. will demonstrate compliancy w/ advanced HEP in 6-8 wks. for optimal prognosis w/ Physical Therapy. LTG#3.) Pt. will demonstrate grade 1 +TTP to L lateral hip region in 6-8 wks. for improved QOL. LTG#4.) Pt. will demonstrate a 15 degree improvement in standing lumbar flexion in 6-8 wks. to return to dressing self IND. LTG#5.) Pt. will return to lifting a case of pop in 6-8 wks. w/o P! to return to PLOF. Outpatient Therapy Plan of Care Treatment Plan May Include Therapeutic Exercise Yes Including Home Exercise Program Manual Therapy Yes Techniques Neuromuscular Re- Yes education Therapeutic Yes Activities to Return to Previous Functional/Work Level ADL/Self Care Yes Education Mechanical Traction Yes Dry Needling Yes Thermal Modalities Yes Electrical Yes Stimulation Ultrasound/ Yes Phonophoresis Iontophoresis Yes Vasopneumatic Yes Compression Pump Massage Yes Eval/Re-Eval Yes Frequency Times per week 2 Duration Number of Weeks 6-8 Addendums This patient is a No candidate for social or vocational rehab ? Patient/Guardian Yes verbally acknowledges understanding of treatment program and consents to further treatment? Patient/Guardian Yes verbally acknowledges understanding of diagnosis, prognosis and goals for treatment? Eval Complexity PT Charges [id number] - Moderate Complexity Shoulder/Elbow Eval Shoulder Objective Measurements Elbow Objective Measurements PHYSICIAN CERTIFICATION: I certify the specified therapy services for Lucia Molina are required, authorized, and reviewed every 30 days.
== END 2025-03-25 23:59 | disposition home or self-care (01) ==
LOC: PT.CARL 08:45
PROVIDERS: PCP Family Medicine; Visit Provider Family Medicine
DX: M25.552 Pain in left hip (principal)
CPT/HCPCS: 97162

== ENCOUNTER 2025-04-21 13:00 | Outpatient (RCR) | payer MEDICARE, SELFPAY | END 2025-04-29 11:53 | disposition home or self-care (01) | LOC: PT.CARL 13:00 | PROVIDERS: PCP Family Medicine; Visit Provider Family Medicine | DX: M25.552 Pain in left hip (principal) | CPT/HCPCS: 97035; 97110 ==